=== PATIENT | female | born 1940 | race Caucasian/White ===

== ENCOUNTER 2020-02-01 15:01 | Inpatient (IN) | payer MEDICARE, BC ==
[2020-02-01] MEDS ORDERED: HEPARIN SODIUM,PORCINE 5,000 UNIT/ML 1 ML VIAL IV PRN (15:24)
[2020-02-01] MEDS: HEPARIN SOD,PORK IN 0.45% NACL 25,000 UNIT in 0.45% NACL 1 250ML.BAG IV SCH (15:36)
--- NOTE | 2020-02-01 15:38 | ED ---
General Adult HPI - General Chief complaint: Chest Pain Stated complaint: NON-STEMI Time Seen by Provider: 02/01/20 15:05 Source: patient, EMS, RN notes reviewed, old records reviewed Mode of arrival: EMS Limitations: no limitations - History of Present Illness Initial comments: This is a 79-year-old female who presents emergency Department from [facility]. According to the report given patient was here for unstable angina. Patient however is not quite sure why she went to her district this morning she states she thinks she might of been dizzy but she now does not remember having any chest pain. Patient has no family or friends or caregiver with her. Patient denies chest pain currently. Patient was sent on heparin. No history of present illness was sent with the patient as well we will try to obtain. - Related Data Home Medications Medication Instructions Recorded Confirmed ALPRAZolam [Xanax] 0.5 mg PO BID 02/01/20 02/01/20 Aspirin EC [Ecotrin Low Dose] 81 mg PO DAILY 02/01/20 02/01/20 Balsalazide Disodium 2,250 mg PO BID 02/01/20 02/01/20 Cholecalciferol [Vitamin D3 (25 1,000 unit PO DAILY 02/01/20 02/01/20 Mcg = 1000 Iu)] Enalapril [Vasotec] 5 mg PO DAILY 02/01/20 02/01/20 Famotidine [Pepcid] 20 mg PO BID 02/01/20 02/01/20 Gabapentin 600 mg PO BID 02/01/20 02/01/20 Levothyroxine Sodium [Synthroid] 100 mcg PO DAILY 02/01/20 02/01/20 Metoprolol Tartrate [Lopressor] 25 mg PO TID 02/01/20 02/01/20 Morphine Sulfate ER [Ms Contin] 15 mg PO DAILY 02/01/20 02/01/20 Oxybutynin Chloride [Ditropan XL] 5 mg PO DAILY 02/01/20 02/01/20 Simvastatin [Zocor] 20 mg PO HS 02/01/20 02/01/20 amLODIPine [Norvasc] 5 mg PO DAILY 02/01/20 02/01/20 Allergies Allergy/AdvReac Type Severity Reaction Status Date / Time No Known Allergies Allergy Verified 02/01/20 15:56 Review of Systems ROS Statement: Those systems with pertinent positive or pertinent negative responses have been documented in the HPI. ROS Other: All systems not noted in ROS Statement are negative. Past Medical History Past Medical History: Cancer History of Any Multi-Drug Resistant Organisms: None Reported Additional Past Surgical History / Comment(s): Right breast masectomy Past Psychological History: No Psychological Hx Reported Smoking Status: Never smoker Past Alcohol Use History: None Reported Past Drug Use History: None Reported General Exam - General Exam Comments Initial Comments: GENERAL: Patient is well-developed and well-nourished. Patient is nontoxic and well- hydrated and is in no acute distress. ENT: Neck is soft and supple. No significant lymphadenopathy is noted. Oropharynx is clear. Moist mucous membranes. Neck has full range of motion without eliciting any pain. EYES: The sclera were anicteric and conjunctiva were pink and moist. Extraocular movements were intact and pupils were equal round and reactive to light. Eyelids were unremarkable. PULMONARY: Patient has crackles in the left base and diminished breath sounds in the right base. CARDIOVASCULAR: There is a regular rate and rhythm without any murmurs gallops or rubs. ABDOMEN: Soft and nontender with normal bowel sounds. No palpable organomegaly was noted. There is no palpable pulsatile mass. SKIN: Skin is clear with no lesions or rashes and otherwise unremarkable. NEUROLOGIC: Patient is alert and oriented x3. Cranial nerves II through XII are grossly intact. Motor and sensory are also intact. Normal speech, volume and content. Symmetrical smile. MUSCULOSKELETAL: Normal extremities with adequate strength and full range of motion. No lower extremity swelling or edema. No calf tenderness. LYMPHATICS: No significant lymphadenopathy is noted PSYCHIATRIC: Normal psychiatric evaluation. Limitations: no limitations Course Vital Signs 02/01/20 02/01/20 02/01/20 15:05 15:14 16:14 Pulse Rate 68 69 Respiratory 16 16 16 Rate Blood Pressure 120/70 110/60 O2 Sat by Pulse 100 96 Oximetry Medical Decision Making - Medical Decision Making EKG shows sinus rhythm at 60 bpm OK interval is 256 QRS is 176 QT interval 462 QTC is 491. Patient's EKG shows no ST segment elevation or depression. Patient is a first-degree AV block. Patient's PTT was elevated so we held the heparin at this point time. I reviewed the chest x-ray. We try to get ahold of her recent hospital dishonesty ER physician's H&P but they were for some reason unable to do so Patient's second troponin was more elevated than the first and the patient will be admitted for an N STEMI I spoke with Dr. Herbert he agreed to admit the patient admitted the patient I wrote admitting orders - Lab Data Result diagrams: 02/01/20 15:15 Lab Results 02/01/20 02/01/20 02/01/20 Range/Units 15:15 15:15 15:15 WBC 9.0 (3.8-10.6) k/uL RBC 3.91 (3.80-5.40) m/uL Hgb 10.8 L (11.4-16.0) gm/dL Hct 34.2 (34.0-46.0) % MCV 87.5 (80.0-100.0) fL MCH 27.6 (25.0-35.0) pg MCHC 31.5 (31.0-37.0) g/dL RDW 14.9 (11.5-15.5) % Plt Count 265 (150-450) k/uL Neutrophils % 88 % Lymphocytes % 8 % Monocytes % 3 % Eosinophils % 1 % Basophils % 0 % Neutrophils # 8.0 H (1.3-7.7) k/uL Lymphocytes # 0.7 L (1.0-4.8) k/uL Monocytes # 0.3 (0-1.0) k/uL Eosinophils # 0.0 (0-0.7) k/uL Basophils # 0.0 (0-0.2) k/uL Hypochromasia Slight PT 15.0 H (9.0-12.0) sec INR 1.5 H (<1.2) APTT 124.3 H* (22.0-30.0) sec Troponin I 0.879 H* (0.000-0.034) ng/mL Critical Care Time Critical Care Time: Yes Total Critical Care Time: 35 Disposition Clinical Impression: Non-STEMI (non-ST elevated myocardial infarction) Disposition: ADMITTED IP TO THIS HOSP Referrals: Froy López DO [Primary Care Provider] - 1-2 days Time of Disposition: 16:11
[2020-02-01 15:45] LABS: Basophils % (A) 0 %; Eosinophils % (A) 1 %; HCT 34.2 % (34.0-46.0); HGB 10.8 gm/dL (11.4-16.0); Hypochromasia Slight; Lymphocytes # (A) 0.7 k/uL (1.0-4.8); Lymphocytes % (A) 8 %; MCH 27.6 pg (25.0-35.0); MCHC 31.5 g/dL (31.0-37.0); MCV 87.5 fL (80.0-100.0); Mean Platelet Volume 7.8; Monocytes # (A) 0.3 k/uL (0-1.0); Monocytes % (A) 3 %; Neutrophils % (A) 88 %; Platelet Count 265 k/uL (150-450); RBC 3.91 m/uL (3.80-5.40); RDW 14.9 % (11.5-15.5)
[2020-02-01 16:02] LABS: INR 1.5 (<1.2)
[2020-02-01 16:04] LABS: Partial Thromboplastin Time 124.3 sec (22.0-30.0)
[2020-02-01] MEDS ORDERED: NITROGLYCERIN SL TABS 0.4 MG TAB SUBLINGUAL PRN (16:16)
[2020-02-01] MEDS: NITROGLYCERIN OINT 1 INCH/GM PACKET TOPICAL SCH (19:07)
[2020-02-01] MEDS: ALPRAZolam 0.5 MG TAB PO SCH (20:20)
[2020-02-01] MEDS: FAMOTIDINE 20 MG TAB PO SCH (20:20)
[2020-02-01] MEDS: GABAPENTIN 300 MG CAP PO SCH (20:20)
[2020-02-01] MEDS: ATORVASTATIN 10 MG TAB PO SCH (20:20)
[2020-02-01] MEDS: BALSALAZIDE DISODIUM 750 MG CAPSULE PO SCH (20:29)
[2020-02-01] MEDS: METOPROLOL TARTRATE 25 MG TAB PO SCH (22:51)
[2020-02-02] MEDS: LEVOTHYROXINE 100 MCG TAB PO SCH (05:56)
[2020-02-02] MEDS: NITROGLYCERIN OINT 1 INCH/GM PACKET TOPICAL SCH ×5 (05:56→23:07)
[2020-02-02 06:48] LABS: Basophils % (A) 0 %; Eosinophils # (A) 0.2 k/uL (0-0.7); Eosinophils % (A) 2 %; HCT 37.2 % (34.0-46.0); HGB 11.4 gm/dL (11.4-16.0); Hypochromasia Slight; Lymphocytes # (A) 0.7 k/uL (1.0-4.8); Lymphocytes % (A) 8 %; MCH 27.6 pg (25.0-35.0); MCHC 30.6 g/dL (31.0-37.0); Monocytes # (A) 0.3 k/uL (0-1.0); Monocytes % (A) 4 %; Neutrophils # (A) 7.9 k/uL (1.3-7.7); Neutrophils % (A) 85 %; Platelet Count 355 k/uL (150-450); RBC 4.14 m/uL (3.80-5.40); RDW 15.3 % (11.5-15.5); WBC 9.2 k/uL (3.8-10.6)
[2020-02-02 06:59] LABS: Cholesterol 84 mg/dL (<200); HDL Cholesterol 35 mg/dL (40-60); LDL Cholesterol,Calculated 35 mg/dL (0-99); Triglycerides 69 mg/dL (<150)
[2020-02-02] MEDS: ALPRAZolam 0.5 MG TAB PO SCH ×2 (09:44→21:23)
[2020-02-02] MEDS: amLODIPine 5 MG TAB PO SCH (09:53)
[2020-02-02] MEDS: GABAPENTIN 300 MG CAP PO SCH ×2 (09:53→21:24)
[2020-02-02] MEDS: METOPROLOL TARTRATE 25 MG TAB PO SCH ×3 (09:53→21:24)
[2020-02-02] MEDS: ASPIRIN 81 MG PO SCH (09:53)
[2020-02-02] MEDS: FAMOTIDINE 20 MG TAB PO SCH ×2 (09:54→21:24)
[2020-02-02] MEDS: OXYBUTYNIN XL 5 MG TAB.ER.24 PO SCH (09:54)
[2020-02-02] MEDS: BALSALAZIDE DISODIUM 750 MG CAPSULE PO SCH ×2 (09:54→21:23)
[2020-02-02] MEDS: ASPIRIN 325 MG TAB PO SCH (09:54)
[2020-02-02] MEDS: MORPHINE SULFATE ER 15 MG TABLET PO SCH (09:54)
[2020-02-02 11:10] LABS: ALT 84 U/L (4-34); African American GFR (CKD) >90 (>60 ml/min/1.73 sqM); Albumin 3.1 g/dL (3.5-5.0); Alkaline Phosphatase 64 U/L (38-126); Anion Gap 8 mmol/L; Blood Urea Nitrogen 33 mg/dL (7-17); Calcium 8.9 mg/dL (8.4-10.2); Carbon Dioxide 25 mmol/L (22-30); Chloride 98 mmol/L (98-107); Glucose 86 mg/dL (74-99); Non-African American GFR(CKD) 84 (>60 ml/min/1.73 sqM); Potassium 3.3 mmol/L (3.5-5.1); Sodium 131 mmol/L (137-145); Total Bilirubin 0.8 mg/dL (0.2-1.3); Total Protein 6.6 g/dL (6.3-8.2)
--- NOTE | 2020-02-02 11:20 | P.HPIM ---
History of Present Illness H&P Date: 02/02/20 Past Medical History Past Medical History: Cancer, Hyperlipidemia, Hypertension, Myocardial Infarction (DE), Osteoarthritis (OA) Additional Past Medical History / Comment(s): cholitis Last Myocardial Infarction Date:: 2008 History of Any Multi-Drug Resistant Organisms: None Reported Additional Past Surgical History / Comment(s): Right breast masectomy Past Anesthesia/Blood Transfusion Reactions: No Reported Reaction Past Psychological History: No Psychological Hx Reported Smoking Status: Never smoker Past Alcohol Use History: None Reported Past Drug Use History: None Reported - Past Family History Mother History Unknown: Yes Medications and Allergies Home Medications Medication Instructions Recorded Confirmed Type ALPRAZolam [Xanax] 0.5 mg PO BID 02/01/20 02/01/20 History Aspirin EC [Ecotrin Low Dose] 81 mg PO DAILY 02/01/20 02/01/20 History Balsalazide Disodium 2,250 mg PO BID 02/01/20 02/01/20 History Cholecalciferol [Vitamin D3 (25 1,000 unit PO DAILY 02/01/20 02/01/20 History Mcg = 1000 Iu)] Enalapril [Vasotec] 5 mg PO DAILY 02/01/20 02/01/20 History Famotidine [Pepcid] 20 mg PO BID 02/01/20 02/01/20 History Gabapentin 600 mg PO BID 02/01/20 02/01/20 History Levothyroxine Sodium [Synthroid] 100 mcg PO DAILY 02/01/20 02/01/20 History Metoprolol Tartrate [Lopressor] 25 mg PO TID 02/01/20 02/01/20 History Morphine Sulfate ER [Ms Contin] 15 mg PO DAILY 02/01/20 02/01/20 History Oxybutynin Chloride [Ditropan XL] 5 mg PO DAILY 02/01/20 02/01/20 History Simvastatin [Zocor] 20 mg PO HS 02/01/20 02/01/20 History amLODIPine [Norvasc] 5 mg PO DAILY 02/01/20 02/01/20 History Allergies Allergy/AdvReac Type Severity Reaction Status Date / Time No Known Allergies Allergy Verified 02/01/20 15:56 Physical Exam Vitals: Vital Signs Temp Pulse Pulse Resp BP BP Pulse Ox 02/02/20 08:30 97.6 F 102 H 18 125/72 95 02/02/20 03:42 97.6 F 84 16 121/74 98 02/01/20 23:55 97.6 F 64 18 111/58 94 L 02/01/20 20:00 97.4 F L 67 18 107/57 99 02/01/20 17:58 97 F L 65 18 107/54 95 02/01/20 17:26 16 115/63 96 02/01/20 16:14 69 16 110/60 96 02/01/20 15:14 16 02/01/20 15:05 68 16 120/70 100 Intake and Output 02/01/20 02/02/20 02/02/20 22:59 06:59 14:59 Intake Total 28.116 540 60.728 Output Total 425 Balance 28.116 115 60.728 Intake: Intake, IV Titration 28.116 60.728 Amount Heparin Sod,Pork in 0.45% 28.116 60.728 NaCl 25,000 unit In 0.45 % NaCl 1 250ml.bag @ 18 UNITS/KG/HR 8.491 mls/hr IV .Q24H [facility] Rx#: [id number] Oral 540 Output: Urine 425 Other: Voiding Method Toilet Toilet Weight 46.9 kg 47.4 kg Results CBC & Chem 7: 02/02/20 06:04 Labs: Abnormal Lab Results - Last 24 Hours (Table) 02/01/20 02/01/20 02/01/20 Range/Units 15:15 15:15 15:15 Hgb 10.8 L (11.4-16.0) gm/dL MCHC (31.0-37.0) g/dL Neutrophils # 8.0 H (1.3-7.7) k/uL Lymphocytes # 0.7 L (1.0-4.8) k/uL PT 15.0 H (9.0-12.0) sec INR 1.5 H (<1.2) APTT 124.3 H* (22.0-30.0) sec Troponin I 0.879 H* (0.000-0.034) ng/mL HDL Cholesterol (40-60) mg/dL 02/01/20 02/01/20 02/02/20 Range/Units 21:16 21:47 02:29 Hgb (11.4-16.0) gm/dL MCHC (31.0-37.0) g/dL Neutrophils # (1.3-7.7) k/uL Lymphocytes # (1.0-4.8) k/uL PT (9.0-12.0) sec INR (<1.2) APTT 55.6 H (22.0-30.0) sec Troponin I 0.718 H* 0.719 H* (0.000-0.034) ng/mL HDL Cholesterol (40-60) mg/dL 02/02/20 02/02/20 02/02/20 Range/Units 06:04 06:04 06:04 Hgb (11.4-16.0) gm/dL MCHC 30.6 L (31.0-37.0) g/dL Neutrophils # 7.9 H (1.3-7.7) k/uL Lymphocytes # 0.7 L (1.0-4.8) k/uL PT (9.0-12.0) sec INR (<1.2) APTT 73.7 H (22.0-30.0) sec Troponin I (0.000-0.034) ng/mL HDL Cholesterol 35 L (40-60) mg/dL Thrombosis Risk Factor Assmnt - Choose All That Apply Any of the Below Risk Factors Present?: Yes Other Risk Factors: Yes Each Risk Factor Represents 3 Points: Age 75 years or older Thrombosis Risk Factor Assessment Total Risk Factor Score: 3 Thrombosis Risk Factor Assessment Level: Moderate Risk
[2020-02-02 11:21] LABS: AST 774 U/L (14-36)
--- NOTE | 2020-02-02 11:32 | CONS ---
CONSULTATION CHIEF COMPLAINT: Fatigue, tiredness and not being her usual self. Sweta is a 79-year-old lady with history of hypertension, hypothyroidism, who presented to [facility] complaining of fatigue, tiredness in the ER. The ER doctor from there called us saying that the patient has a new onset left bundle branch block and then transferred the patient over to [facility]. As per patient, patient did not wish to go to [facility]. As per the physician, patient and want to go to [facility] but opted to come here. The patient never had any chest pain. EKG does show sinus rhythm with left bundle branch block. At the time of my evaluation this morning, she appears somewhat confused and is not quite sure why she actually went to the emergency room in the first instance. She had been treated with intravenous heparin, which she has on right now and the current restrictive criteria we are following in treating and performing invasive procedures at this hospital, the hospital has recently informed us, this patient does not fit those criteria. The patient had a non ST-segment elevation NM, but does not have chest pain. She is not hemodynamically unstable. She is not short of breath. Hence, the plan is to treat her with medical therapy with aspirin, Lipitor, continue the IV heparin, beta miguel and nitrates. We will obtain a 2D echo on her tomorrow to document the LV function and further optimize her medical therapy and if she remains pain free and she is doing well, I anticipate her being discharged home over the next 48 hours and she will undergo an outpatient stress test and if she has significant areas of ischemia and has symptoms, then we will undergo cardiac catheterization at that time. PAST MEDICAL HISTORY: Significant for hypertension, dyslipidemia, hypothyroidism. MEDICATIONS: Include Xanax, aspirin, Vasotec, Pepcid, Synthroid, Lopressor, Zocor, Norvasc, and Ditropan. ALLERGIES: There are no known drug allergies. FAMILY HISTORY: Negative for premature coronary artery disease. SOCIAL HISTORY: Negative for current smoking, EtOH abuse, or drug abuse. REVIEW OF SYSTEMS: HEENT: Unremarkable. CARDIAC: As described above. RESPIRATORY: As described above. GI: Negative. GENITOURINARY: Negative. ALLERGY: None. SKIN: Negative. MUSCULOSKELETAL: Negative. ENDOCRINE: Negative. HEMATOLOGIC: Negative. DERM: Negative. CONSTITUTIONAL: As described above. Rest of the system review is not relevant. EXAM: Patient is afebrile. Heart rate is around 80 beats per minute. Blood pressure is 120/70, respiratory rate is 18, O2 sat is 95% on 2 L. There is no jugular venous distention. Chest exam reveals good air entry bilaterally. Heart exam reveals first and second heart sounds and a systolic murmur at the left lower sternal border. Abdomen is soft. Exam of extremities did not reveal any edema. LAB: Showed that the tropes are mildly elevated at 0.8, 0.7, 0.7. LDL is 35, hemoglobin is 7.4. We do not have electrolytes on her, will check one. ASSESSMENT: 1. Acute non ST-segment elevation myocardial infarction. 2. Mild confusional state. 3. Abnormal EKG. 4. Hypertension. 5. Dyslipidemia. PLAN: The patient had tested negative for Covid at the other hospital. I will obtain a 2D echo on her tomorrow and treat her with optimal and aggressive medical therapy. The patient does not fit criteria for cardiac catheterization based on the guidelines that we have recently received from [facility]. Patient is not having chest pain. She is not short of breath. She is not in heart failure. We will treat her with medical therapy. Consider an outpatient stress test and in the presence of large areas of ischemia, we may consider performing invasive procedures. Thank you for giving us the privilege to participate in the care of this pleasant lady. NAA / LILI: [id number] /
--- NOTE | 2020-02-02 14:07 | P.HPIM ---
History of Present Illness H&P Date: 02/02/20 Chief Complaint: Feeling unwell History of presenting complaint: This is a 79-year-old patient of Dr. Froy Bansal. Chronic stable medical conditions include hyperlipidemia, hypertension, osteoarthritis. Patient initially presented to [facility] for which he was transferred here. Patient is not sure exactly why she was taking the hospital but she does say that she's had a bit of a cough last few days has been sneezing. Has had some chills no obvious fever. Does feel tired and rundown decreased appetite patient rather forgetful otherwise. Patient's overt-19 was ruled out. Patient have some positive troponin for which cardiology was consulted. Nonspecific EKG changes. This point and decided not to do any cardiac catheterization. Patient denies any of his chest pain. Review of systems: GEN.: Tired decreased appetite chills EYES: None HEENT: Decreased hearing NECK: None RESPIRATORY: None CARDIOVASCULAR: No chest pain GASTROINTESTINAL: None GENITOURINARY: None MUSCULOSKELETAL: Joint pains LYMPHATICS: None HEMATOLOGICAL: None PSYCHIATRY: Forgetful NEUROLOGICAL: Does use a walker Past medical history to include: Hyperlipidemia, hypertension, PR, osteoarthritis, right mastectomy for cancer Social history: Does not smoke or drink alcohol. Lives with . Does use a walker. Family history: Reviewed, noncontributory to presentation Physical examination: VITAL SIGNS: Afebrile, 68, 16, 120/70, 100% on 3 L GENERAL: BMI 17.9, laying in bed, not in distress. EYES: Pupils equal. Conjunctiva normal. HEENT: External appearance of nose and ears normal, oral cavity grossly normal. NECK: JVD not raised; masses not palpable. HEART: First and second heart sounds are normal; no edema. LUNGS: Respiratory rate normal; slightly decreased breath sounds. ABDOMEN: Soft, nontender, liver spleen not palpable, no masses palpable. PSYCH: [Patient is able to answer simple questions mood and affect slightly anxious MUSCULOSKELETAL: Evidence of OA in multiple joints, loss of subcutaneous fat, bony prominences NEUROLOGICAL: Cranial nerves grossly intact; no facial asymmetry, power and sensation grossly intact. LYMPHATICS: No lymph nodes palpable in the axilla and neck INVESTIGATIONS, reviewed in the clinical context: White count 9 hemoglobin 10.8 crit is to 65 Troponin I 0.879, 0.718, 0.719 EKG tracing personally reviewed by vt-sinus rhythm with intraventricular block nonspecific T-wave changes in the inferior leads Assessment: -This is a patient with a good historian for about a week as a cough sneezing chills. Decreased appetite denies any obvious chest pain. Could've had a viral syndrome with acute myocarditis. 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 At this point cardiology is not planning for any intervention. Patient denies any chest pain we'll DC the Nitropaste. Patient only on Lipitor and aspirin. Increase dose of Lipitor 20 mg daily at bedtime. We'll keep a close eye. We will stop the heparin in 24 hours. Past Medical History Past Medical History: Cancer, Hyperlipidemia, Hypertension, Myocardial Infarction (PR), Osteoarthritis (OA) Additional Past Medical History / Comment(s): cholitis Last Myocardial Infarction Date:: 2008 History of Any Multi-Drug Resistant Organisms: None Reported Additional Past Surgical History / Comment(s): Right breast masectomy Past Anesthesia/Blood Transfusion Reactions: No Reported Reaction Past Psychological History: No Psychological Hx Reported Smoking Status: Never smoker Past Alcohol Use History: None Reported Past Drug Use History: None Reported - Past Family History Mother History Unknown: Yes Medications and Allergies Home Medications Medication Instructions Recorded Confirmed Type ALPRAZolam [Xanax] 0.5 mg PO BID 02/01/20 02/01/20 History Aspirin EC [Ecotrin Low Dose] 81 mg PO DAILY 02/01/20 02/01/20 History Balsalazide Disodium 2,250 mg PO BID 02/01/20 02/01/20 History Cholecalciferol [Vitamin D3 (25 1,000 unit PO DAILY 02/01/20 02/01/20 History Mcg = 1000 Iu)] Enalapril [Vasotec] 5 mg PO DAILY 02/01/20 02/01/20 History Famotidine [Pepcid] 20 mg PO BID 02/01/20 02/01/20 History Gabapentin 600 mg PO BID 02/01/20 02/01/20 History Levothyroxine Sodium [Synthroid] 100 mcg PO DAILY 02/01/20 02/01/20 History Metoprolol Tartrate [Lopressor] 25 mg PO TID 02/01/20 02/01/20 History Morphine Sulfate ER [Ms Contin] 15 mg PO DAILY 02/01/20 02/01/20 History Oxybutynin Chloride [Ditropan XL] 5 mg PO DAILY 02/01/20 02/01/20 History Simvastatin [Zocor] 20 mg PO HS 02/01/20 02/01/20 History amLODIPine [Norvasc] 5 mg PO DAILY 02/01/20 02/01/20 History Allergies Allergy/AdvReac Type Severity Reaction Status Date / Time No Known Allergies Allergy Verified 02/01/20 15:56 Physical Exam Vitals: Vital Signs Temp Pulse Pulse Resp BP BP Pulse Ox 02/02/20 08:30 97.6 F 102 H 18 125/72 95 02/02/20 03:42 97.6 F 84 16 121/74 98 02/01/20 23:55 97.6 F 64 18 111/58 94 L 02/01/20 20:00 97.4 F L 67 18 107/57 99 02/01/20 17:58 97 F L 65 18 107/54 95 02/01/20 17:26 16 115/63 96 02/01/20 16:14 69 16 110/60 96 02/01/20 15:14 16 02/01/20 15:05 68 16 120/70 100 Intake and Output 02/01/20 02/02/20 02/02/20 22:59 06:59 14:59 Intake Total 28.116 540 60.728 Output Total 425 Balance 28.116 115 60.728 Intake: Intake, IV Titration 28.116 60.728 Amount Heparin Sod,Pork in 0.45% 28.116 60.728 NaCl 25,000 unit In 0.45 % NaCl 1 250ml.bag @ 18 UNITS/KG/HR 8.491 mls/hr IV .Q24H [facility] Rx#: [id number] Oral 540 Output: Urine 425 Other: Voiding Method Toilet Toilet Weight 46.9 kg 47.4 kg Results CBC & Chem 7: 02/02/20 06:04 02/02/20 06:04 Labs: Abnormal Lab Results - Last 24 Hours (Table) 02/01/20 02/01/20 02/01/20 Range/Units 15:15 15:15 15:15 Hgb 10.8 L (11.4-16.0) gm/dL MCHC (31.0-37.0) g/dL Neutrophils # 8.0 H (1.3-7.7) k/uL Lymphocytes # 0.7 L (1.0-4.8) k/uL PT 15.0 H (9.0-12.0) sec INR 1.5 H (<1.2) APTT 124.3 H* (22.0-30.0) sec Troponin I 0.879 H* (0.000-0.034) ng/mL HDL Cholesterol (40-60) mg/dL 02/01/20 02/01/20 02/02/20 Range/Units 21:16 21:47 02:29 Hgb (11.4-16.0) gm/dL MCHC (31.0-37.0) g/dL Neutrophils # (1.3-7.7) k/uL Lymphocytes # (1.0-4.8) k/uL PT (9.0-12.0) sec INR (<1.2) APTT 55.6 H (22.0-30.0) sec Troponin I 0.718 H* 0.719 H* (0.000-0.034) ng/mL HDL Cholesterol (40-60) mg/dL 02/02/20 02/02/20 02/02/20 Range/Units 06:04 06:04 06:04 Hgb (11.4-16.0) gm/dL MCHC 30.6 L (31.0-37.0) g/dL Neutrophils # 7.9 H (1.3-7.7) k/uL Lymphocytes # 0.7 L (1.0-4.8) k/uL PT (9.0-12.0) sec INR (<1.2) APTT 73.7 H (22.0-30.0) sec Troponin I (0.000-0.034) ng/mL HDL Cholesterol 35 L (40-60) mg/dL Thrombosis Risk Factor Assmnt - Choose All That Apply Any of the Below Risk Factors Present?: Yes Other Risk Factors: Yes Each Risk Factor Represents 3 Points: Age 75 years or older Thrombosis Risk Factor Assessment Total Risk Factor Score: 3 Thrombosis Risk Factor Assessment Level: Moderate Risk
[2020-02-02] MEDS: HEPARIN SOD,PORK IN 0.45% NACL 25,000 UNIT in 0.45% NACL 1 250ML.BAG IV SCH (15:48)
[2020-02-02] MEDS ORDERED: Potassium Replacement Protocol 1 EACH MISC MISCELLANE PRN (17:22)
[2020-02-02] MEDS: POTASSIUM CHLORIDE 10 MEQ in WATER FOR INJECTION 1 100ML.BAG IVPB SCH ×4 (18:25→23:01)
[2020-02-02] MEDS: ATORVASTATIN 10 MG TAB PO SCH (21:24)
[2020-02-03] MEDS: HEPARIN SOD,PORK IN 0.45% NACL 25,000 UNIT in 0.45% NACL 1 250ML.BAG IV SCH (01:16)
[2020-02-03] MEDS: NITROGLYCERIN OINT 1 INCH/GM PACKET TOPICAL SCH ×4 (05:37→23:15)
[2020-02-03] MEDS: LEVOTHYROXINE 100 MCG TAB PO SCH (05:38)
[2020-02-03 06:43] LABS: African American GFR (CKD) >90 (>60 ml/min/1.73 sqM); Anion Gap 8 mmol/L; Basophils % (A) 0 %; Blood Urea Nitrogen 19 mg/dL (7-17); Calcium 8.6 mg/dL (8.4-10.2); Carbon Dioxide 27 mmol/L (22-30); Chloride 98 mmol/L (98-107); Eosinophils # (A) 0.1 k/uL (0-0.7); Eosinophils % (A) 1 %; Glucose 113 mg/dL (74-99); HCT 35.9 % (34.0-46.0); Hypochromasia Slight; Lymphocytes # (A) 0.8 k/uL (1.0-4.8); Lymphocytes % (A) 9 %; MCH 27.3 pg (25.0-35.0); MCHC 30.7 g/dL (31.0-37.0); MCV 88.8 fL (80.0-100.0); Mean Platelet Volume 7.8; Monocytes # (A) 0.4 k/uL (0-1.0); Monocytes % (A) 4 %; Neutrophils # (A) 8.2 k/uL (1.3-7.7); Neutrophils % (A) 86 %; Non-African American GFR(CKD) 86 (>60 ml/min/1.73 sqM); Platelet Count 273 k/uL (150-450); Potassium 3.7 mmol/L (3.5-5.1); RBC 4.04 m/uL (3.80-5.40); RDW 15.4 % (11.5-15.5); Sodium 133 mmol/L (137-145); WBC 9.6 k/uL (3.8-10.6)
[2020-02-03] MEDS: GABAPENTIN 300 MG CAP PO SCH ×2 (08:36→20:41)
[2020-02-03] MEDS: METOPROLOL TARTRATE 25 MG TAB PO SCH (08:36)
[2020-02-03] MEDS: ASPIRIN 81 MG PO SCH (08:36)
[2020-02-03] MEDS: FAMOTIDINE 20 MG TAB PO SCH ×2 (08:37→20:41)
[2020-02-03] MEDS: MORPHINE SULFATE ER 15 MG TABLET PO SCH (08:37)
[2020-02-03] MEDS: ALPRAZolam 0.5 MG TAB PO SCH ×2 (08:37→20:41)
[2020-02-03] MEDS: BALSALAZIDE DISODIUM 750 MG CAPSULE PO SCH ×2 (08:37→20:41)
[2020-02-03] MEDS: amLODIPine 5 MG TAB PO SCH (08:38)
[2020-02-03] MEDS: ASPIRIN 325 MG TAB PO SCH (08:38)
[2020-02-03] MEDS: OXYBUTYNIN XL 5 MG TAB.ER.24 PO SCH (08:38)
[2020-02-03] MEDS ORDERED: POTASSIUM CHLORIDE ER 20 MEQ TAB.ER PO STA (11:01)
--- NOTE | 2020-02-03 13:00 | ECHOF ---
Referral Reason:elevated troponins MEASUREMENTS -------- HEIGHT: 162.6 cm WEIGHT: 46.3 kg BP: 111/69 RVIDd: 2.8 cm (< 3.3) IVSd: 1.0 cm (0.6 - 1.1) LVIDd: 4.0 cm (3.9 - 5.3) LVPWd: 1.2 cm (0.6 - 1.1) IVSs: 0.9 cm LVIDs: 3.8 cm LVPWs: 0.9 cm LAESV Index (A-L): 54.43 ml/m Ao Diam: 2.8 cm (2.0 - 3.7) AV Cusp: 1.7 cm (1.5 - 2.6) MV EXCURSION: 21.150 mm (> 18.000) MV EF SLOPE: 94 mm/s (70 - 150) EPSS: 0.9 cm AR PHT: 536 ms RAP: 20.00 mmHg RVSP: 55.56 mmHg FINDINGS -------- Atrial fibrillation. This was a technically adequate study. The left ventricular size is normal. Left ventricular wall thickness is normal. There is severe g lobal hypokinesis of LV . Overall left ventricular systolic function is severely impaired with, an EF between 20 - 25 %. Left ventricular fillimg pressure cannot be estimated due to Atrial fibrillat ion. The right ventricle is normal in size. LA is severely dilated >40 ml/m2 The right atrium is moderately enlarged. Interatrial and interventricular septum intact. There is mild aortic valve sclerosis. Trace to mild aortic regurgitation. Moderate mitral annular calcification present. Severe mitral regurgitation is present. Moderate tricuspid regurgitation present. There is moderate pulmonary hypertension. The right declan tricular systolic pressure, as measured by Doppler, is 55.56mmHg. There is no pulmonic regurgitation present. The aortic root size is normal. The inferior vena cava is dilated with poor inspiratory collapse which is consistent with estimated r ight atrial pressure of 20 mmHg. There is no pericardial effusion. Large Pleural Effusion. CONCLUSIONS -------- 1. There is severe global hypokinesis of LV . 2. Overall left ventricular systolic function is severely impaired with, an EF between 20 - 25 %. 3. Left ventricular fillimg pressure cannot be estimated due to Atrial fibrillation. 4. LA is severely dilated >40 ml/m2 5. The right atrium is moderately enlarged. 6. There is mild aortic valve sclerosis. 7. Trace to mild aortic regurgitation. 8. Moderate mitral annular calcification present. 9. Severe mitral regurgitation is present. 10. Moderate tricuspid regurgitation present. 11. There is moderate pulmonary hypertension. 12. There is no pulmonic regurgitation present. 13. The inferior vena cava is dilated with poor inspiratory collapse which is consistent with estimat ed right atrial pressure of 20 mmHg. 14. Large Pleural Effusion. ELECTRICIAN BUS: Magali Harley RDCS
--- NOTE | 2020-02-03 13:28 | PN ---
PROGRESS NOTE Mrs. Navarrete is in atrial fib today. She has underlying left bundle with a controlled ventricular rate, however. With activity, rate seems to go up a little bit. She has no further chest discomfort. Her troponin was elevated but she has no further chest pain. We will not do any coronary angiography, but given the fact her rhythm is now atrial fib, rate is moderate, I will increase the metoprolol to optimize rate control. We will start her on Eliquis 2.5 mg b.i.d., obtain echocardiogram and supplement her potassium. At the time of my evaluation, she is comfortable, resting. Denies any chest discomfort. Vitals are stable. JVD is not evident. S1, S2 with a regular rate and rhythm. Short systolic murmur. Lungs are clear. Abdomen and lower extremity exam are unremarkable. Plan is to supplement potassium. Increase metoprolol to 50 mg t.i.d. to optimize rate control. Start her on Eliquis 2.5 mg b.i.d., discontinue the aspirin. I spoke to the patient's daughter as well. We will optimize rate control, anticoagulation. In view of the fact she is almost 80 years of age and weighs less than 50 kg, I will place her only on 2.5 of Eliquis b.i.d. If she has any further chest discomfort, we will consider cardiac catheterization, but for now, we will pursue medical therapy with beta blockers. Obtain echocardiogram and supplement potassium. Prognosis remains guarded. MMODL / IJN: [id number] /
[2020-02-03] MEDS: METOPROLOL TARTRATE 50 MG TAB PO SCH ×2 (17:49→20:42)
[2020-02-03] MEDS: APIXABAN 2.5 MG TABLET PO SCH (20:42)
[2020-02-03] MEDS: ATORVASTATIN 10 MG TAB PO SCH (20:42)
--- NOTE | 2020-02-03 20:54 | P.PN ---
Progress Note - Text Progress Note Date: 02/03/20 Chief Complaint: Feeling unwell History of presenting complaint: This is a 79-year-old patient of Dr. Froy Bansal. Chronic stable medical conditions include hyperlipidemia, hypertension, osteoarthritis. Patient initially presented to [facility] for which he was transferred here. Patient is not sure exactly why she was taking the hospital but she does say that she's had a bit of a cough last few days has been sneezing. Has had some chills no obvious fever. Does feel tired and rundown decreased appetite patient rather forgetful otherwise. Patient's overt-19 was ruled out. Patient have some positive troponin for which cardiology was consulted. Nonspecific EKG changes. This point and decided not to do any cardiac catheterization. Patient denies any of his chest pain. Admitted with-viral syndrome. Also acute non-Q-wave HI. Today-patient found to be in atrial fibrillation. Put on beta blockers or liquids. Overall feeling a bit better. No chest pain. No palpitation. Review of systems: Was done for constitutional, cardiovascular, GI, pulmonary. relevant finding as above Active Medications Alprazolam (Xanax) 0.5 mg PO BID [facility] Last Admin: 02/03/20 20:41 Dose: 0.5 mg Documented by: Amlodipine Besylate (Norvasc) 5 mg PO DAILY [facility] Last Admin: 02/03/20 08:38 Dose: 5 mg Documented by: Apixaban (Eliquis) 2.5 mg PO BID [facility] Last Admin: 02/03/20 20:42 Dose: 2.5 mg Documented by: Atorvastatin Calcium (Lipitor) 10 mg PO HS [facility] Last Admin: 02/03/20 20:42 Dose: 10 mg Documented by: Balsalazide (Colazal) 2,250 mg PO BID [facility] Last Admin: 02/03/20 20:41 Dose: 2,250 mg Documented by: Famotidine (Pepcid) 20 mg PO BID [facility] Last Admin: 02/03/20 20:41 Dose: 20 mg Documented by: Gabapentin (Neurontin) 600 mg PO BID [facility] Last Admin: 02/03/20 20:41 Dose: 600 mg Documented by: Levothyroxine Sodium (Synthroid) 100 mcg PO DAILY@0630 [facility] Last Admin: 02/03/20 05:38 Dose: 100 mcg Documented by: Metoprolol Tartrate (Lopressor) 50 mg PO TID [facility] Last Admin: 02/03/20 20:42 Dose: 50 mg Documented by: Miscellaneous Information (Potassium Per Protocol) 1 each MISCELLANE DAILY PRN; Protocol PRN Reason: Per Protocol Morphine Sulfate (Ms Contin) 15 mg PO DAILY [facility] Last Admin: 02/03/20 08:37 Dose: 15 mg Documented by: Nitroglycerin (Nitrostat) 0.4 mg SUBLINGUAL Q5M PRN PRN Reason: Chest Pain Nitroglycerin (Nitro-Bid Oint) 1 inch TOPICAL Q6HR [facility] Last Admin: 02/03/20 17:49 Dose: 1 inch Documented by: Oxybutynin Chloride (Ditropan Xl) 5 mg PO DAILY [facility] Last Admin: 02/03/20 08:38 Dose: 5 mg Documented by: Physical examination: VITAL SIGNS: 97.7, 108, 18, 111/69, 95% on 2 L GENERAL: Laying in bed, awake EYES: Pupils equal. Conjunctiva normal. HEENT: External appearance of nose and ears normal, oral cavity grossly normal. NECK: JVD not raised; masses not palpable. HEART: Heart sounds irregular; no edema. LUNGS: Respiratory rate normal; slightly decreased breath sounds. ABDOMEN: Soft, nontender, liver spleen not palpable, no masses palpable. PSYCH: [Patient is able to answer simple questions mood and affect normal MUSCULOSKELETAL: Evidence of OA in multiple joints, loss of subcutaneous fat, bony prominences INVESTIGATIONS, reviewed in the clinical context: White count 9.6 hemoglobin 11 potassium 3.7 creatinine 0.62 2-D echocardiogram global hypokinesia, EF 20-25%. Moderate mitral annular calcification, severe mitral regurgitation, moderate tricuspid regurgitation, moderate pulmonary hypertension, pleural effusion Previous testing White count 9 hemoglobin 10.8 crit is to 65 Troponin I 0.879, 0.718, 0.719 EKG tracing personally reviewed by me-sinus rhythm with intraventricular block nonspecific T-wave changes in the inferior leads Assessment: -New onset atrial fibrillation rate uncontrolled, POA -Chronic congestive heart failure from systolic dysfunction EF 20/25 percent from a lying ischemic heart disease -Moderate mitral annular calcification, severe mitral regurgitation, moderate tricuspid regurgitation, -Secondary moderate pulmonary hypertension -Possible acute non-Q-wave HI -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 Patient does appear to feel better. Overall prognosis guarded.
[2020-02-04] MEDS: NITROGLYCERIN OINT 1 INCH/GM PACKET TOPICAL SCH (05:38)
[2020-02-04] MEDS: LEVOTHYROXINE 100 MCG TAB PO SCH (05:38)
[2020-02-04 06:26] LABS: Basophils % (A) 0 %; Eosinophils # (A) 0.1 k/uL (0-0.7); Eosinophils % (A) 1 %; HCT 35.1 % (34.0-46.0); HGB 10.9 gm/dL (11.4-16.0); Hypochromasia Slight; Lymphocytes # (A) 0.9 k/uL (1.0-4.8); Lymphocytes % (A) 10 %; MCH 27.8 pg (25.0-35.0); MCHC 30.9 g/dL (31.0-37.0); MCV 89.9 fL (80.0-100.0); Monocytes # (A) 0.4 k/uL (0-1.0); Monocytes % (A) 5 %; Neutrophils # (A) 6.8 k/uL (1.3-7.7); Neutrophils % (A) 82 %; Platelet Count 255 k/uL (150-450); RBC 3.91 m/uL (3.80-5.40); RDW 15.6 % (11.5-15.5); WBC 8.3 k/uL (3.8-10.6)
[2020-02-04 06:40] LABS: African American GFR (CKD) >90 (>60 ml/min/1.73 sqM); Anion Gap 8 mmol/L; Blood Urea Nitrogen 23 mg/dL (7-17); Calcium 8.7 mg/dL (8.4-10.2); Carbon Dioxide 27 mmol/L (22-30); Chloride 98 mmol/L (98-107); Glucose 128 mg/dL (74-99); Non-African American GFR(CKD) 84 (>60 ml/min/1.73 sqM); Potassium 4.7 mmol/L (3.5-5.1); Sodium 133 mmol/L (137-145)
[2020-02-04] MEDS: ALPRAZolam 0.5 MG TAB PO SCH ×2 (09:06→21:36)
[2020-02-04] MEDS: OXYBUTYNIN XL 5 MG TAB.ER.24 PO SCH (09:06)
[2020-02-04] MEDS: BALSALAZIDE DISODIUM 750 MG CAPSULE PO SCH ×3 (09:06→21:40)
[2020-02-04] MEDS: GABAPENTIN 300 MG CAP PO SCH ×2 (09:06→21:31)
[2020-02-04] MEDS: APIXABAN 2.5 MG TABLET PO SCH (09:06)
[2020-02-04] MEDS: amLODIPine 5 MG TAB PO SCH (09:06)
[2020-02-04] MEDS: FAMOTIDINE 20 MG TAB PO SCH ×2 (09:06→21:31)
[2020-02-04] MEDS: METOPROLOL TARTRATE 50 MG TAB PO SCH ×3 (09:06→21:31)
[2020-02-04] MEDS: MORPHINE SULFATE ER 15 MG TABLET PO SCH (09:07)
--- NOTE | 2020-02-04 10:39 | XR ---
EXAMINATION TYPE: XR chest 2V DATE OF EXAM: 02/04/2020 COMPARISON: 02/01/2020 TECHNIQUE: PA and lateral views submitted. HISTORY: Shortness of breath FINDINGS: Bilateral consolidation and pleural effusion. Atherosclerotic change aorta. Apical pleural thickening with calcifications nodularity in the right lung stable. Surgical clips right axilla. Calcification left axilla. Heart appears enlarged. IMPRESSION: 1. Bilateral infiltrate and pleural effusion correlate for CHF otherwise consider pneumonia.
--- NOTE | 2020-02-04 11:08 | US ---
EXAMINATION TYPE: US chest DATE OF EXAM: 02/04/2020 COMPARISON: NONE CLINICAL HISTORY: pleural effusion. TECHNIQUE: Targeted ultrasound of the posterior lower bilateral hemithoraces EXAM MEASUREMENTS: Right Pleural Effusion pocket size: 9.2 cm Right skin surface to fluid distance: 1.6 cm Left Pleural Effusion pocket size: 5.9 cm Left skin surface to fluid distance: 1.3 cm Right side MARKED for possible thoracentesis outside the dept. Left side MARKED for possible thoracentesis outside the dept. Pulmonologists are able to review the images in the patient?s EMR. IMPRESSIONS: Bilateral pleural effusions
--- NOTE | 2020-02-04 11:44 | CONS ---
CONSULTATION REASON FOR CONSULTATION: Pleural effusion. DATE OF CONSULTATION: 02/04/2020 This was a patient who actually was admitted on January 31. The patient is a 79-year- old female who presented to the emergency department at [facility]. The patient was there apparently for chest pain and unstable angina. Anyway, she apparently was seen there and sent to the emergency room here at [facility]. After evaluation there, she was admitted here with a diagnosis of non ST- segment elevation myocardial infarction. She was seen by Cardiology and had an echocardiogram. Echocardiogram was reviewed. It did show apparently a left-sided pleural effusion. We did not have a chest x-ray here, so we ordered one. Chest x-ray shows findings that are consistent with congestive heart failure. She does have effusion the size of which are difficult to assess on chest x-ray. An ultrasound was ordered. She appears to be somewhat short of breath. She is a bit tachypneic and has some mild conversational dyspnea. No audible wheezing. No use of accessory muscles. CURRENT HOME MEDICATIONS: Current home medications are reviewed. She is on Xanax, aspirin, balsalazide, vitamin D3, Vasotec, Pepcid, gabapentin, levothyroxine, metoprolol, MS Contin, Ditropan, Zocor, and Norvasc. ALLERGIES: Allergies are denied. PAST MEDICAL HISTORY: Her past medical history is positive for breast cancer and she has had a previous right mastectomy. Based on her medications, she has a history of hypertension, acid reflux disease, hypothyroidism, CHF, and hyperlipidemia. SOCIAL HISTORY: Negative for tobacco use. She denies any alcohol or illicit drug use. FAMILY HISTORY AND OCCUPATIONAL HISTORY: Noncontributory. We do not have much in the way of information on her because she usually goes to [facility]. Full records are currently not available. CURRENT MEDICATIONS HERE: Current medications here include Xanax, amlodipine, Eliquis, Lipitor, Colazal, famotidine, Neurontin, levothyroxine, metoprolol, morphine, nitroglycerin, Ditropan, and potassium chloride along with potassium replacement therapy. REVIEW OF SYSTEMS: CONSTITUTIONAL: Weakness. NEUROLOGIC: Negative. HEENT: Negative. CARDIOVASCULAR: Shortness of breath. PULMONARY: Shortness of breath. GI: Negative. : Negative. RHEUMATOLOGIC: Negative. IMMUNOLOGIC: Negative. ENDOCRINOLOGIC: Negative. DERMATOLOGIC: Negative. PHYSICAL EXAMINATION: VITAL SIGNS: Vital signs are reviewed. Temperature is 97.4, heart rate is 132 and irregular. She may be in atrial fibrillation. Respiratory rate 18. Blood pressure 127/72, heart rate 90 and saturations are 90% on 2 L. GENERAL: Appears in no acute distress. Mildly tachypneic and dyspneic. HEENT: Examination is grossly unremarkable. Nasal O2 in place. NECK: Supple. Full range of motion. No adenopathy or thyromegaly. Neck veins are distended. CARDIOVASCULAR: Examination reveals tachycardia. There is some irregularity to the rhythm. Heart sounds are distant. S1, S2 normal. A soft systolic murmur is noted. LUNGS: Reveal bibasilar crackles. Breath sounds are diminished at the bases. No wheezes or rhonchi. ABDOMEN: Soft. Bowel sounds are heard. EXTREMITIES: Are intact. Minimal edema. SKIN: Without rash. NEUROLOGIC: Examination is brief but nonfocal. Chest x-ray shows findings consistent with CHF and bilateral effusions. Chest ultrasound was just done. LAB DATA: Lab data is reviewed. White count 8.3, hemoglobin 10.9, hematocrit 35.1, platelet count is 255,000. PTT is elevated at 56.9. It looks like she was previously on heparin. Now she is on Eliquis. Sodium 133, potassium 4.7, chloride 98, CO2 of 27. Anion gap is 8. BUN and creatinine were 23 and 0.68. AST 774, ALT 84. Troponin 0.719. Current medications are reviewed. Chest x-rays reviewed. She is on Eliquis 2.5 mg twice a day. ASSESSMENT: 1. Acute hypoxemic respiratory failure, secondary to congestive heart failure. 2. Bilateral effusions, the extent of which are not clear and ultrasound has been ordered. 3. Non ST-segment elevation myocardial infarction. 4. History of vitamin D deficiency. 5. Hypertension. 6. Hyperlipidemia. 7. Hypothyroidism. 8. History of underlying congestive heart failure. 9. Severe cardiomyopathy with ejection fraction of 20% to 25%. 10.Valvular heart disease as noted on echocardiogram. PLAN: An ultrasound of the chest has been ordered. She may need thoracentesis. Additional recommendations and suggestions are forthcoming. We will have to hold her Eliquis for a day or 2 before we do the thoracentesis. Additional recommendations and suggestions are forthcoming. Prognosis is very guarded. MMODL / IJN: [id number] /
--- NOTE | 2020-02-04 12:29 | PN ---
PROGRESS NOTE This lady came in with mild troponin elevation transferred from [facility]. Also had atrial fibrillation with moderate ventricular rate underlying left bundle. Yesterday she was more short of breath. I recommended an echocardiogram, which revealed ejection fraction of 20% with global decrease in contractility. There is also pleural effusion. I am recommending a chest x-ray, PA, lateral and a pulmonary evaluation. We will continue Eliquis at 2.5 mg b.i.d. Rate control is fairly decent. I will continue conservative management for the patient. I explained to her in detail. We will request pulmonary evaluation and obtain a chest x-ray as well. MMODL / IJN: [id number] /
--- NOTE | 2020-02-04 15:10 | XR ---
EXAMINATION TYPE: XR chest 1V portable DATE OF EXAM: 02/04/2020 Comparison: 02/04/2020 Clinical History: 79-year-old female status post thoracentesis Findings: Heart upper limits of normal in size. Moderate left pleural effusion. There is a curvilinear edge pro jecting in the left apex but does not have a typical appearance of a pneumothorax. Short interval fol low-up is recommended. Right apical pleural-parenchymal scarring. Axillary clips on the right. Skinfo ld projecting at the right lower lung. Impression: 1. A linear edge at the left apex unlikely to be a pneumothorax in the absence of thoracentesis on th is side. It also has an atypical appearance for pneumothorax. Follow-up can be performed to reassess this finding. 2. Moderate left pleural effusion remains with adjacent atelectasis and/or consolidation. Right effus ion considerably improved to resolved. 3. Focal right apical pleural parenchymal scarring.
[2020-02-04 15:47] LABS: Appearance,BF Hazy; Nucleated Cells, Body Fluid 100 /uL; RBC, Body Fluid 965 /uL
[2020-02-04 16:07] LABS: Mononuclear WBC,Body Fluid 57 %; Polynuclear WBC,Body Fluid 43 %; Total Cells Counted,Body Fluid 100
[2020-02-04] MEDS ORDERED: ALPRAZolam 0.5 MG TAB PO STA (17:14)
--- NOTE | 2020-02-04 17:47 | XR ---
EXAMINATION TYPE: XR chest 1V portable DATE OF EXAM: 02/04/2020 HISTORY: repeat post thorancentesis xray COMPARISON: 02/04/2020 TECHNIQUE: Single view of the chest is submitted. FINDINGS: Demonstrated are scattered senescent parenchymal change. Basilar infiltrates noted. Left-sided pleural effusion identified. No visible pneumothorax. The heart is stable. Hilar and mediastinal structures are within normal limits. Degenerative changes are seen of the dorsal spine. IMPRESSION: 1. Basilar infiltrates noted. Left-sided pleural effusion identified. No visible pneumothorax.
--- NOTE | 2020-02-04 19:57 | P.PN ---
Progress Note - Text Progress Note Date: 02/04/20 Chief Complaint: Feeling unwell History of presenting complaint: This is a 79-year-old patient of Dr. Froy Bansal. Chronic stable medical conditions include hyperlipidemia, hypertension, osteoarthritis. Patient initially presented to [facility] for which he was transferred here. Patient is not sure exactly why she was taking the hospital but she does say that she's had a bit of a cough last few days has been sneezing. Has had some chills no obvious fever. Does feel tired and rundown decreased appetite patient rather forgetful otherwise. Patient's overt-19 was ruled out. Patient have some positive troponin for which cardiology was consulted. Nonspecific EKG changes. This point and decided not to do any cardiac catheterization. Patient denies any of his chest pain. Admitted with-viral syndrome. Also acute non-Q-wave VT. Atrial fibrillation Today-some shortness of breath. Tired. Later seen by Dr. Rojas from pulmonary. Thoracentesis was done. Review of systems: Was done for constitutional, cardiovascular, GI, pulmonary. relevant finding as above Active Medications Alprazolam (Xanax) 0.5 mg PO BID [facility] Last Admin: 02/04/20 09:06 Dose: 0.5 mg Documented by: Amlodipine Besylate (Norvasc) 5 mg PO DAILY [facility] Last Admin: 02/04/20 09:06 Dose: 5 mg Documented by: Atorvastatin Calcium (Lipitor) 10 mg PO HS [facility] Last Admin: 02/03/20 20:42 Dose: 10 mg Documented by: Balsalazide (Colazal) 2,250 mg PO BID [facility] Last Admin: 02/04/20 09:06 Dose: 2,250 mg Documented by: Famotidine (Pepcid) 20 mg PO BID [facility] Last Admin: 02/04/20 09:06 Dose: 20 mg Documented by: Gabapentin (Neurontin) 600 mg PO BID [facility] Last Admin: 02/04/20 09:06 Dose: 600 mg Documented by: Levothyroxine Sodium (Synthroid) 100 mcg PO DAILY@0630 [facility] Last Admin: 02/04/20 05:38 Dose: 100 mcg Documented by: Metoprolol Tartrate (Lopressor) 50 mg PO TID [facility] Last Admin: 02/04/20 18:14 Dose: 50 mg Documented by: Miscellaneous Information (Potassium Per Protocol) 1 each MISCELLANE DAILY PRN; Protocol PRN Reason: Per Protocol Morphine Sulfate (Ms Contin) 15 mg PO DAILY [facility] Last Admin: 02/04/20 09:07 Dose: 15 mg Documented by: Nitroglycerin (Nitrostat) 0.4 mg SUBLINGUAL Q5M PRN PRN Reason: Chest Pain Oxybutynin Chloride (Ditropan Xl) 5 mg PO DAILY [facility] Last Admin: 02/04/20 09:06 Dose: 5 mg Documented by: Physical examination: VITAL SIGNS: 97.4, 132, 127/72, 90% on 2 L-this morning GENERAL: Laying in bed, awake EYES: Pupils equal. Conjunctiva normal. HEENT: External appearance of nose and ears normal, oral cavity grossly normal. NECK: JVD not raised; masses not palpable. HEART: Heart sounds irregular; no edema. LUNGS: Respiratory rate increased, slightly decreased breath sounds. ABDOMEN: Soft, nontender, liver spleen not palpable, no masses palpable. PSYCH: [Patient is able to answer simple questions mood and affect normal MUSCULOSKELETAL: Evidence of OA in multiple joints, loss of subcutaneous fat, bony prominences INVESTIGATIONS, reviewed in the clinical context: White count 8.3 hemoglobin 10.9 potassium 4.7 creatinine 0.68 Chest ultrasound-bilateral pleural effusions Previous testing White count 9.6 hemoglobin 11 potassium 3.7 creatinine 0.62 2-D echocardiogram global hypokinesia, EF 20-25%. Moderate mitral annular calcification, severe mitral regurgitation, moderate tricuspid regurgitation, moderate pulmonary hypertension, pleural effusion Previous testing White count 9 hemoglobin 10.8 crit is to 65 Troponin I 0.879, 0.718, 0.719 EKG tracing personally reviewed by me-sinus rhythm with intraventricular block nonspecific T-wave changes in the inferior leads Assessment: -New onset atrial fibrillation rate uncontrolled, POA -Chronic congestive heart failure from systolic dysfunction EF 20/25 percent from a lying ischemic heart disease -Bilateral pleural effusion from CHF-status post thoracentesis -Moderate mitral annular calcification, severe mitral regurgitation, moderate tricuspid regurgitation, -Secondary moderate pulmonary hypertension -Possible acute non-Q-wave VT -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 Other medications to continue. Status post thoracentesis. Repeat checks x-ray.
--- NOTE | 2020-02-04 20:26 | PCN ---
PROCEDURE NOTE PROCEDURE: Right thoracentesis. PREOPERATIVE DIAGNOSIS: Right pleural effusion. POSTOPERATIVE DIAGNOSIS: Right pleural effusion. There was informed consent and universal timeout. OPERATORS: 1. Dr. Arellano. 2. Dr. Ziegler. 3. Anthony Hurtado. 4. Saul Balderas. There was 1000 mL of fluid removed from the right pleural space that was sent for evaluation. The posterior right chest was marked by ultrasound. There were no immediate complications. The patient tolerated the procedure well. One liter of yellow fluid was removed from the right pleural base. A chest x-ray was ordered. There was no immediate complication and the patient, again, tolerated the procedure very well. The patient's procedure took place in the patient's room, #378. MMODL / IJN: [id number] /
[2020-02-04] MEDS: ATORVASTATIN 10 MG TAB PO SCH (21:31)
[2020-02-05 00:16] LABS: Glucose, BF Source Pleural Fluid; Glucose, Body Fluid 176 mg/dL; LDH, Body Fluid Source Pleural Fluid
[2020-02-05] MEDS: LEVOTHYROXINE 100 MCG TAB PO SCH (06:46)
[2020-02-05] MEDS: MORPHINE SULFATE ER 15 MG TABLET PO SCH (08:29)
[2020-02-05] MEDS: OXYBUTYNIN XL 5 MG TAB.ER.24 PO SCH (08:29)
[2020-02-05] MEDS: GABAPENTIN 300 MG CAP PO SCH ×2 (08:29→20:11)
[2020-02-05] MEDS: FAMOTIDINE 20 MG TAB PO SCH ×2 (08:29→20:11)
[2020-02-05] MEDS: METOPROLOL TARTRATE 50 MG TAB PO SCH ×3 (08:31→22:27)
[2020-02-05] MEDS: amLODIPine 5 MG TAB PO SCH (08:31)
[2020-02-05] MEDS: ALPRAZolam 0.5 MG TAB PO SCH ×2 (08:31→20:11)
[2020-02-05] MEDS: BALSALAZIDE DISODIUM 750 MG CAPSULE PO SCH ×2 (08:32→22:27)
--- NOTE | 2020-02-05 11:47 | P.PN ---
Subjective Progress Note Date: 02/05/20 This is a 79-year-old female with history of hypertension, hypothyroidism, who initially presented to [facility] with symptoms of fatigue and tiredness. She was noted there to have a new left bundle branch block pattern as well as mild abnormality in troponin, patient then was recommended to come here to [facility] where she was seen in the emergency room. Patient was diagnosed with a non-ST elevation myocardial infarction, and was also found to be in atrial fibrillation with moderate ventricular response. Patient did undergo an echocardiogram with Doppler study which revealed an ejection fraction of 20% with global decrease in contractility, it was also noted that the patient had a significant pleural effusion. Chest x-ray was ordered yesterday as well as a consultation with pulmonary. Patient was on Eliquis 2-1/2 mg one tablet by mouth twice a day for anticoagulation for her atrial fibrillation. The patient had been seen in consultation yesterday by pulmonary, underwent a thoracentesis for approximately a liter yesterday. She was seen and examined today and overall states that she is feeling significantly better. Blood pressure 118/60 with a heart rate in the 70s this morning. Her Eliquis continues to be on hold as pulmonary may perform a thoracentesis on the left. Objective - Vital Signs Vital signs: Vital Signs Temp 98.9 F 02/05/20 08:20 Pulse 100 02/05/20 08:20 Resp 20 02/05/20 08:20 BP 118/61 02/05/20 08:20 Pulse Ox 98 02/05/20 08:20 Intake & Output 02/04/20 02/05/20 02/05/20 18:59 06:59 18:59 Intake Total 430 20 270 Output Total 100 120 Balance 430 -80 150 Weight 46.5 kg Intake: IV 20 0.9 20 Oral 430 270 Output: Urine 100 120 Other: Voiding Method Indwelling Catheter Indwelling Catheter Indwelling Catheter # Voids 1 # Bowel Movements 0 - Exam PHYSICAL EXAMINATION: GENERAL: 79-year-old female in no acute distress at the time of my examination HEENT: Head is atraumatic, normocephalic. Pupils equal, round. Sclera anicteric. Conjunctiva are clear. Mucous membranes of the mouth are moist. Neck is supple. There is no elevated jugular venous pressure. No carotid bruit is heard. HEART EXAMINATION: Heart S1 S2 1 systolic murmur is heard CHEST EXAMINATION: Lungs reveal diminished air entry bilaterally to the bases ABDOMEN: Soft, nontender. Bowel sounds are heard. No organomegaly noted. EXTREMITIES: 2+ peripheral pulses with no evidence of peripheral edema and no calf tenderness noted. NEUROLOGIC patient is awake, alert and oriented 3 . - Labs CBC & Chem 7: 02/04/20 05:54 02/04/20 05:54 Labs: Microbiology - Last 24 Hours (Table) 02/04/20 14:30 Gram Stain - Preliminary Pleural Fluid Body Fluid Culture - Preliminary 02/04/20 14:30 Fungal Culture - Preliminary Pleural Fluid 02/04/20 14:30 Acid Fast Bacilli Culture - Preliminary Pleural Fluid Assessment and Plan Plan: Assessment and plan #1 acute hypoxemic respiratory failure secondary to congestive heart failure, systolic acute on chronic #2 bilateral effusion status post thoracentesis of the right yesterday #3 non-ST elevation OH #4 paroxysmal atrial fibrillation #5 hypertension #6 hyperlipidemia #7 hypothyroidism Plan Echocardiogram with Doppler study revealed severe MR, moderate TR, moderate pulmonary hypertension, ejection fraction less than 20%. A new to hold the Eliquis at this time for possible left-sided thoracentesis. We will start the patient on subcu heparin 2500 units twice a day. We will discontinue the Norvasc, secondary to the reduced LV function. Start the patient on a low-dose angiotensin miguel. If the potassium tolerates we will also consider Aldactone. DNP note has been reviewed, I agree with a documented findings and plan of care. Patient was seen and examined.
--- NOTE | 2020-02-05 14:44 | P.PN ---
Subjective Progress Note Date: 02/05/20 Principal diagnosis: This is a 79-year-old female patient who presented to the emergency department at [facility]. She was apparently complaining of chest pain and un stable angina. Subsequently, she was transferred here to [facility] emergency department for further workup and evaluation. Her past medical history includes breast cancer status post mastectomy, hypertension, GERD, hypothyroidism, CHF and hyperlipidemia. After her evaluation, she was admitted as an inpatient with a diagnosis of non-ST segment elevation myocardial infarction. She was evaluated by cardiology and underwent a 2-D echocardiogram which incidentally showed a left-sided pleural effusion. For follow-up a chest x-ray was completed which showed findings consistent with congestive heart failure and a left sided pleural effusion. Due to the incidental findings of pleural effusion and ultrasound of her chest was ordered which demonstrated a right sided pleural effusion pocket measuring 9.2 cm and a left pleural effusion pocket size measuring 5.9 cm. Subsequently, the patient underwent a right-sided thoracentesis performed by Dr. Arellano after obtaining consent. The patient had 1000 mL of fluid drained from her right pleural space which the cytology results remain pending. On 02/05/2020 the patient seen in follow-up on selective care unit, she is awake and alert, in no acute distress, sitting up comfortably in bed. Oxygen saturations are 98% on 5 L nasal cannula. She did not have a repeat chest x-ray completed today. Pleural fluid showing a LDH level 119, fluid total protein 1867 consistent with a transudate of effusion. Currently denies any complaints of shortness of breath and she reports she feels significantly better today. Remote telemetry showing atrial fibrillation heart rate 73. Objective - Vital Signs Vital signs: Vital Signs Temp 98.4 F 02/05/20 12:00 Pulse 74 02/05/20 12:00 Resp 20 02/05/20 12:00 BP 99/56 02/05/20 12:00 Pulse Ox 95 02/05/20 12:00 Intake & Output 02/04/20 02/05/20 02/05/20 18:59 06:59 18:59 Intake Total 430 20 270 Output Total 100 240 Balance 430 -80 30 Weight 46.5 kg Intake: IV 20 0.9 20 Oral 430 270 Output: Urine 100 240 Other: Voiding Method Indwelling Catheter Indwelling Catheter Indwelling Catheter # Voids 1 1 # Bowel Movements 0 - Exam Pleasant 79-year-old female patient who is in no acute distress. She is alert and oriented 3. - Constitutional General appearance: Present: cooperative, no acute distress, thin - EENT Eyes: Present: PERRLA. Absent: scleral icterus - Neck Details: Neck is supple, no JVD. Neck: Absent: lymphadenopathy, stridor - Respiratory Details: Lung sounds with some few scattered crackles throughout. Diminished bilateral bases. Respirations are symmetrical and nonlabored. - Cardiovascular Details: Irregular rhythm with controlled rate. S1 and S2 present, either for S3 or gallop. Positive systolic murmur. - Gastrointestinal Gastrointestinal Comment(s): Abdomen is soft, nontender and nondistended. Active bowel sounds present all 4 abdominal quadrants. No guarding or rigidity. General gastrointestinal: Absent: organomegaly - Integumentary Integumentary Comment(s): Skin is warm and dry. No clubbing or cyanosis present. No rash or abnormal pigmentation is present. - Neurologic Neurologic: Present: CNII-XII intact - Musculoskeletal Musculoskeletal: Present: generalized weakness, strength equal bilaterally - Psychiatric Psychiatric: Present: A&O x's 3, appropriate affect, intact judgment & insight - Allied health notes Allied health notes reviewed: nursing - Labs CBC & Chem 7: 02/04/20 05:54 02/04/20 05:54 Labs: Microbiology - Last 24 Hours (Table) 02/04/20 14:30 Gram Stain - Preliminary Pleural Fluid Body Fluid Culture - Preliminary 02/04/20 14:30 Fungal Culture - Preliminary Pleural Fluid 02/04/20 14:30 Acid Fast Bacilli Culture - Preliminary Pleural Fluid Assessment and Plan Assessment: 1. Acute hypoxic respiratory failure, secondary to congestive heart failure. 2. Bilateral pleural effusions, status post right thoracentesis on 02/04/2020 with 1 L of transudate of fluid drained. 3. Non-ST segment elevation myocardial infarction. 4. Chronic atrial fibrillation, on eliquis for anticoagulation. 5. Severe cardiomyopathy with an ejection fraction of 20-25%. 6. Hypertension 7. Hyperlipidemia 8. Hypothyroidism 9. History of underlying congestive heart failure. 10. Valvular heart disease as noted on the 2-D echocardiogram. 11. History of vitamin D deficiency. Plan: 1. The patient was seen and examined at her bedside on the cardiac stepdown unit with Dr. Arellano. 2. The patient can be resumed on her eliquis has no further plans for thoracentesis at this time. 3. Wean oxygen as tolerated to maintain oxygen saturations equal to or greater than 92%. 4. Repeat chest x-ray in a.m. 02/06/2020. 5. Increase activity as tolerated. 6. More recommendations to follow based on patient's clinical course. I, the cosigning physician, performed a history and physical examination on the patient. Lungs with bibasilar crackles and diminished to her bilateral base and maintaining O2 saturation in the 90s on 5 L nasal cannula. I discussed the plan and assessment of care with Gama Balderas NP. I attest that the above note is dictated by him. Time with Patient: Less than 30
[2020-02-05] MEDS ORDERED: SPIRONOLACTONE 25 MG TAB PO STA (18:20)
--- NOTE | 2020-02-05 18:21 | P.PN ---
Progress Note - Text Progress Note Date: 02/05/20 Chief Complaint: Feeling unwell History of presenting complaint: This is a 79-year-old patient of Dr. Froy Bansal. Chronic stable medical conditions include hyperlipidemia, hypertension, osteoarthritis. Patient initially presented to [facility] for which he was transferred here. Patient is not sure exactly why she was taking the hospital but she does say that she's had a bit of a cough last few days has been sneezing. Has had some chills no obvious fever. Does feel tired and rundown decreased appetite patient rather forgetful otherwise. Patient's overt-19 was ruled out. Patient have some positive troponin for which cardiology was consulted. Nonspecific EKG changes. This point and decided not to do any cardiac catheterization. Patient denies any of his chest pain. Admitted with-viral syndrome. Also acute non-Q-wave MD. Atrial fibrillation uncontrolled-went back into sinus rhythm. Right thoracentesis was done on February 03. 1000 cc were removed. Today-breathing a bit better. Amlodipine was discontinued. Oral intake better. Telemetry shows sinus rhythm. Review of systems: Was done for constitutional, cardiovascular, GI, pulmonary. relevant finding as above Active Medications Alprazolam (Xanax) 0.5 mg PO BID [facility] Last Admin: 02/05/20 08:31 Dose: 0.5 mg Documented by: Apixaban (Eliquis) 2.5 mg PO BID [facility] Atorvastatin Calcium (Lipitor) 10 mg PO HS [facility] Last Admin: 02/04/20 21:31 Dose: 10 mg Documented by: Balsalazide (Colazal) 2,250 mg PO BID [facility] Last Admin: 02/05/20 08:32 Dose: 2,250 mg Documented by: Famotidine (Pepcid) 20 mg PO BID [facility] Last Admin: 02/05/20 08:29 Dose: 20 mg Documented by: Gabapentin (Neurontin) 600 mg PO BID [facility] Last Admin: 02/05/20 08:29 Dose: 600 mg Documented by: Levothyroxine Sodium (Synthroid) 100 mcg PO DAILY@0630 [facility] Last Admin: 02/05/20 06:46 Dose: 100 mcg Documented by: Losartan Potassium (Cozaar) 12.5 mg PO DAILY [facility] Metoprolol Tartrate (Lopressor) 50 mg PO TID [facility] Last Admin: 02/05/20 15:56 Dose: 50 mg Documented by: Miscellaneous Information (Potassium Per Protocol) 1 each MISCELLANE DAILY PRN; Protocol PRN Reason: Per Protocol Morphine Sulfate (Ms Contin) 15 mg PO DAILY [facility] Last Admin: 02/05/20 08:29 Dose: 15 mg Documented by: Nitroglycerin (Nitrostat) 0.4 mg SUBLINGUAL Q5M PRN PRN Reason: Chest Pain Oxybutynin Chloride (Ditropan Xl) 5 mg PO DAILY [facility] Last Admin: 02/05/20 08:29 Dose: 5 mg Documented by: Physical examination: VITAL SIGNS: 98.4, 74, 18, 99/56, 95% on 5 L GENERAL: Laying in bed, awake, tired EYES: Pupils equal. Conjunctiva normal. HEENT: External appearance of nose and ears normal, oral cavity grossly normal. NECK: JVD not raised; masses not palpable. HEART: Heart sounds irregular; no edema. LUNGS: Respiratory rate increased, slightly decreased breath sounds. ABDOMEN: Soft, nontender, liver spleen not palpable, no masses palpable. PSYCH: [Patient is able to answer simple questions mood and affect normal MUSCULOSKELETAL: Evidence of OA in multiple joints, loss of subcutaneous fat, bony prominences INVESTIGATIONS, reviewed in the clinical context: White count 8.3 hemoglobin 10.9 potassium 4.7 creatinine 0.68 Chest ultrasound-bilateral pleural effusions Previous testing White count 9.6 hemoglobin 11 potassium 3.7 creatinine 0.62 2-D echocardiogram global hypokinesia, EF 20-25%. Moderate mitral annular calcification, severe mitral regurgitation, moderate tricuspid regurgitation, moderate pulmonary hypertension, pleural effusion Previous testing White count 9 hemoglobin 10.8 crit is to 65 Troponin I 0.879, 0.718, 0.719 EKG tracing personally reviewed by me-sinus rhythm with intraventricular block nonspecific T-wave changes in the inferior leads Assessment: -Paroxysmal atrial fibrillation rate uncontrolled-went back into sinus rhythm, POA -Chronic congestive heart failure from systolic dysfunction EF 20-25 percent from underlying ischemic heart disease -Acute hypoxic respiratory failure pleural effusion. 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 Recheck if patient is over replaced with Synthroid. Add Aldactone
[2020-02-05] MEDS: APIXABAN 2.5 MG TABLET PO SCH (20:11)
[2020-02-05] MEDS: ATORVASTATIN 10 MG TAB PO SCH (20:11)
[2020-02-06] MEDS: LEVOTHYROXINE 100 MCG TAB PO SCH (05:18)
--- NOTE | 2020-02-06 07:27 | XR ---
EXAMINATION TYPE: XR chest 1V portable DATE OF EXAM: 02/06/2020 HISTORY: Shortness of breath. COMPARISON: 02/04/2020 TECHNIQUE: Single view of the chest is submitted. FINDINGS: Demonstrated are scattered senescent parenchymal change. Basilar infiltrates and small pleural effusions persist. Slight interval progression May be present. Correlate clinically. The heart is stable. Hilar and mediastinal structures are within normal limits. Degenerative changes are seen of the dorsal spine. IMPRESSION: 1. Basilar infiltrates and small pleural effusions persist. Slight interval progression May be pres ent. Correlate clinically.
--- NOTE | 2020-02-06 11:04 | P.PN ---
Subjective Progress Note Date: 02/06/20 Principal diagnosis: This is a 79-year-old female patient who presented to the emergency department at [facility]. She was apparently complaining of chest pain and un stable angina. Subsequently, she was transferred here to [facility] emergency department for further workup and evaluation. Her past medical history includes breast cancer status post mastectomy, hypertension, GERD, hypothyroidism, CHF and hyperlipidemia. After her evaluation, she was admitted as an inpatient with a diagnosis of non-ST segment elevation myocardial infarction. She was evaluated by cardiology and underwent a 2-D echocardiogram which incidentally showed a left-sided pleural effusion. For follow-up a chest x-ray was completed which showed findings consistent with congestive heart failure and a left sided pleural effusion. Due to the incidental findings of pleural effusion and ultrasound of her chest was ordered which demonstrated a right sided pleural effusion pocket measuring 9.2 cm and a left pleural effusion pocket size measuring 5.9 cm. Subsequently, the patient underwent a right-sided thoracentesis performed by Dr. Arellano after obtaining consent. The patient had 1000 mL of fluid drained from her right pleural space which the cytology results remain pending. On 02/05/2020 the patient seen in follow-up on selective care unit, she is awake and alert, in no acute distress, sitting up comfortably in bed. Oxygen saturations are 98% on 5 L nasal cannula. She did not have a repeat chest x-ray completed today. Pleural fluid showing a LDH level 119, fluid total protein 1867 consistent with a transudate of effusion. Currently denies any complaints of shortness of breath and she reports she feels significantly better today. Remote telemetry showing atrial fibrillation heart rate 73. On 02/05/2020 the patient seen in follow-up on selective care unit with Dr. Arelalno. The patient was found sitting on the floor close to her bedside. She reports that she was trying to get up to go back to bed. Denies any complaints of pain, shortness of breath and denies that she hit her head. There is no obvious trauma. Oxygen saturations are 97% on 8 L high flow nasal cannula. She is a Osman catheter in place for accurate I&O. She has been afebrile the last 24 hours, she is hemodynamically stable with her current blood pressure 116/71 mmHg and term oh telemetry showing atrial fibrillation heart rate 76. A chest x-ray was completed today which demonstrates basilar infiltrates and small pleural effusions. She underwent a right thoracentesis on 02/04/2020 with 1 L of transudative fluid drained and her cytology results remain pending. Objective - Vital Signs Vital signs: Vital Signs Temp 98 F 02/06/20 08:00 Pulse 74 02/06/20 09:23 Resp 20 02/06/20 09:23 BP 116/71 02/06/20 09:23 Pulse Ox 97 02/06/20 09:23 Intake & Output 02/05/20 02/06/20 02/06/20 18:59 06:59 18:59 Intake Total 270 90 Output Total 440 400 Balance -170 -400 90 Weight 47.9 kg Intake: Oral 270 90 Output: Urine 440 400 Other: Voiding Method Indwelling Catheter Indwelling Catheter # Voids 1 1 - Exam Pleasant 79-year-old female patient who is in no acute distress. She is alert and oriented x2, person and place. - Constitutional General appearance: Present: cooperative, no acute distress, thin - EENT Eyes: Present: PERRLA. Absent: scleral icterus - Neck Details: Neck is supple, no JVD. Neck: Absent: lymphadenopathy - Respiratory Details: Lung sounds with some few scattered crackles throughout, diminished bilateral bases. Respirations are symmetrical and nonlabored. - Cardiovascular Details: Irregular rhythm with controlled rate. S1 and S2 present, either for S3 or gallop. Positive systolic murmur. - Gastrointestinal Gastrointestinal Comment(s): Abdomen is soft, nontender and nondistended. Active bowel sounds present all 4 abdominal quadrants. No guarding or rigidity. - Integumentary Integumentary Comment(s): Skin is warm and dry. No clubbing or cyanosis present. No rash or abnormal pigmentation is present. - Neurologic Neurologic: Present: CNII-XII intact - Musculoskeletal Musculoskeletal: Present: generalized weakness, strength equal bilaterally - Psychiatric Psychiatric Comment(s): Alert and Oriented 2, person and place Psychiatric: Present: appropriate affect - Allied health notes Allied health notes reviewed: nursing - Labs CBC & Chem 7: 02/04/20 05:54 02/04/20 05:54 Labs: Microbiology - Last 24 Hours (Table) 02/04/20 14:30 Gram Stain - Preliminary Pleural Fluid Body Fluid Culture - Preliminary 02/04/20 14:30 Acid Fast Bacilli Smear - Final Pleural Fluid Acid Fast Bacilli Culture - Preliminary - Imaging and Cardiology Chest x-ray: report reviewed, image reviewed Assessment and Plan Assessment: 1. Acute hypoxic respiratory failure, secondary to congestive heart failure. 2. Bilateral pleural effusions, status post right thoracentesis on 02/04/2020 with 1 L of transudate of fluid drained. 3. Non-ST segment elevation myocardial infarction. 4. Chronic atrial fibrillation, on eliquis for anticoagulation. 5. Severe cardiomyopathy with an ejection fraction of 20-25%. 6. Hypertension 7. Hyperlipidemia 8. Hypothyroidism 9. History of underlying congestive heart failure. 10. Valvular heart disease as noted on the 2-D echocardiogram. 11. History of vitamin D deficiency. 12. Status post fall from standing, unwitnessed. Plan: 1. The patient was seen and examined at her bedside on the cardiac stepdown unit with Dr. Arellano. 2. Continue eliquis as there is no further plans for thoracentesis at this time. 3. Wean oxygen as tolerated to maintain oxygen saturations equal to or greater than 92%. 4. Increase activity as tolerated. 5. Patient may need a product safety officer. 6. More recommendations to follow based on patient's clinical course. I, the cosigning physician, performed a history and physical examination on the patient. Lungs with bibasilar crackles and diminished to her bilateral base and maintaining O2 saturation in the 90s on 5 L nasal cannula. I discussed the plan and assessment of care with Gama Balderas NP. I attest that the above note is dictated by him. Time with Patient: Less than 30
--- NOTE | 2020-02-06 11:18 | P.PN ---
Subjective Progress Note Date: 02/06/20 This is a 79-year-old female with history of hypertension, hypothyroidism, who initially presented to [facility] with symptoms of fatigue and tiredness. She was noted there to have a new left bundle branch block pattern as well as mild abnormality in troponin, patient then was recommended to come here to [facility] where she was seen in the emergency room. Patient was diagnosed with a non-ST elevation myocardial infarction, and was also found to be in atrial fibrillation with moderate ventricular response. Patient did undergo an echocardiogram with Doppler study which revealed an ejection fraction of 20% with global decrease in contractility, it was also noted that the patient had a significant pleural effusion. Chest x-ray was ordered yesterday as well as a consultation with pulmonary. Patient was on Eliquis 2-1/2 mg one tablet by mouth twice a day for anticoagulation for her atrial fibrillation. The patient had been seen in consultation yesterday by pulmonary, underwent a thoracentesis for approximately a liter yesterday. She was seen and examined today and overall states that she is feeling significantly better. Blood pressure 118/60 with a heart rate in the 70s this morning. Her Eliquis continues to be on hold as pulmonary may perform a thoracentesis on the left. 02/06/2020 Patient was seen and examined this morning sitting up in the chair at bedside. Breathing is overall stable. She was reinitiated on her Eliquis yesterday, a thoracentesis of the left side will not be performed. We will decrease her Aldactone to 25 mg daily, discontinue her Osman catheter. In a normal sinus rhythm this morning. We will start the patient on 20 mg of Lasix twice a day. We will also obtain lytes BUN and creatinine today and daily. Objective - Vital Signs Vital signs: Vital Signs Temp 98 F 02/06/20 08:00 Pulse 74 02/06/20 09:23 Resp 20 02/06/20 09:23 BP 116/71 02/06/20 09:23 Pulse Ox 97 02/06/20 09:23 Intake & Output 02/05/20 02/06/20 02/06/20 18:59 06:59 18:59 Intake Total 270 90 Output Total 440 400 Balance -170 -400 90 Weight 47.9 kg Intake: Oral 270 90 Output: Urine 440 400 Other: Voiding Method Indwelling Catheter Indwelling Catheter # Voids 1 1 - Exam PHYSICAL EXAMINATION: GENERAL: 79-year-old female in no acute distress at the time of my examination HEENT: Head is atraumatic, normocephalic. Pupils equal, round. Sclera anicteric. Conjunctiva are clear. Mucous membranes of the mouth are moist. Neck is supple. There is no elevated jugular venous pressure. No carotid bruit is heard. HEART EXAMINATION: Heart S1 S2 1 systolic murmur is heard CHEST EXAMINATION: Lungs reveal diminished air entry bilaterally to the bases ABDOMEN: Soft, nontender. Bowel sounds are heard. No organomegaly noted. EXTREMITIES: 2+ peripheral pulses with no evidence of peripheral edema and no calf tenderness noted. NEUROLOGIC patient is awake, alert and oriented 3 . - Labs CBC & Chem 7: 02/04/20 05:54 02/04/20 05:54 Labs: Microbiology - Last 24 Hours (Table) 02/04/20 14:30 Gram Stain - Preliminary Pleural Fluid Body Fluid Culture - Preliminary 02/04/20 14:30 Acid Fast Bacilli Smear - Final Pleural Fluid Acid Fast Bacilli Culture - Preliminary Assessment and Plan Plan: Assessment and plan #1 acute hypoxemic respiratory failure secondary to congestive heart failure, systolic acute on chronic #2 bilateral effusion status post thoracentesis of the right yesterday #3 non-ST elevation ND #4 paroxysmal atrial fibrillation #5 hypertension #6 hyperlipidemia #7 hypothyroidism Plan Echocardiogram with Doppler study revealed severe MR, moderate TR, moderate pulmonary hypertension, ejection fraction less than 20%. Patient has been resumed on her Eliquis. We will decrease the Aldactone to 25 mg daily, check some lytes BUN and creatinine today and daily, and initiate Lasix 20 mg twice a day and discontinue the Osman catheter. Plan for possible discharge home in 24 hours or so if stable. DNP note has been reviewed, I agree with a documented findings and plan of care. Patient was seen and examined.
[2020-02-06] MEDS: ALPRAZolam 0.5 MG TAB PO SCH ×2 (11:21→20:29)
[2020-02-06] MEDS: GABAPENTIN 300 MG CAP PO SCH ×2 (11:21→20:29)
[2020-02-06] MEDS ORDERED: HEPARIN SOD,PORK IN 0.45% NACL 25,000 UNIT in 0.45% NACL 1 250ML.BAG IV SCH (12:00)
--- NOTE | 2020-02-06 12:02 | P.PN ---
Progress Note - Text Progress Note Date: 02/06/20 This is an addendum to the cardiology progress note dictated earlier. Patient had a swallowing evaluation today which she failed. We will hold her Eliquis and beta miguel at this time and put her on IV heparin as well as IV beta miguel until the patient has stability with her swallowing. DNP note has been reviewed, I agree with a documented findings and plan of care. Patient was seen and examined.
[2020-02-06] MEDS: OXYBUTYNIN XL 5 MG TAB.ER.24 PO SCH (12:05)
[2020-02-06] MEDS: LOSARTAN 25 MG TAB PO SCH (12:05)
[2020-02-06] MEDS: SPIRONOLACTONE 25 MG TAB PO SCH (12:05)
[2020-02-06] MEDS: MORPHINE SULFATE ER 15 MG TABLET PO SCH (12:05)
[2020-02-06] MEDS: FAMOTIDINE 20 MG TAB PO SCH ×2 (12:05→20:29)
[2020-02-06] MEDS: BALSALAZIDE DISODIUM 750 MG CAPSULE PO SCH ×2 (12:05→20:30)
[2020-02-06] MEDS: METOPROLOL TARTRATE 5 MG/5 ML VIAL IVP SCH ×3 (12:42→23:45)
--- NOTE | 2020-02-06 16:59 | P.PN ---
Progress Note - Text Progress Note Date: 02/06/20 Chief Complaint: Feeling unwell History of presenting complaint: This is a 79-year-old patient of Dr. Fory Bansal. Chronic stable medical conditions include hyperlipidemia, hypertension, osteoarthritis. Patient initially presented to [facility] for which he was transferred here. Patient is not sure exactly why she was taking the hospital but she does say that she's had a bit of a cough last few days has been sneezing. Has had some chills no obvious fever. Does feel tired and rundown decreased appetite patient rather forgetful otherwise. Patient's overt-19 was ruled out. Patient have some positive troponin for which cardiology was consulted. Nonspecific EKG changes. This point and decided not to do any cardiac catheterization. Patient denies any of his chest pain. Admitted with-viral syndrome. Also acute non-Q-wave GA. Atrial fibrillation uncontrolled-went back into sinus rhythm. Right thoracentesis was done on February 03. 1000 cc were removed. Today-tired. today patient underwent a modified barium swallow testing. Showed significant aspiration. Suggested diet was dysphagia stage III diet. Review of systems: Was done for constitutional, cardiovascular, GI, pulmonary. relevant finding as above Active Medications Alprazolam (Xanax) 0.5 mg PO BID [facility] Last Admin: 02/06/20 11:21 Dose: Not Given Documented by: Atorvastatin Calcium (Lipitor) 10 mg PO HS [facility] Last Admin: 02/05/20 20:11 Dose: 10 mg Documented by: Balsalazide (Colazal) 2,250 mg PO BID [facility] Last Admin: 02/06/20 12:05 Dose: Not Given Documented by: Famotidine (Pepcid) 20 mg PO BID [facility] Last Admin: 02/06/20 12:05 Dose: Not Given Documented by: Gabapentin (Neurontin) 600 mg PO BID [facility] Last Admin: 02/06/20 11:21 Dose: Not Given Documented by: Heparin Sodium/Sodium Chloride (25,000 unit/ Sodium Chloride) 250 mls @ 8 mls/hr IV .Q24H [facility] Last Admin: 02/06/20 12:44 Dose: 800 unit/hr, 8 mls/hr Documented by: Levothyroxine Sodium (Synthroid) 100 mcg PO DAILY@0630 [facility] Last Admin: 02/06/20 05:18 Dose: 100 mcg Documented by: Losartan Potassium (Cozaar) 12.5 mg PO DAILY [facility] Last Admin: 02/06/20 12:05 Dose: Not Given Documented by: Metoprolol Tartrate (Lopressor) 5 mg IVP Q6HR [facility] Last Admin: 02/06/20 12:42 Dose: 5 mg Documented by: Miscellaneous Information (Potassium Per Protocol) 1 each MISCELLANE DAILY PRN; Protocol PRN Reason: Per Protocol Morphine Sulfate (Ms Contin) 15 mg PO DAILY [facility] Last Admin: 02/06/20 12:05 Dose: Not Given Documented by: Nitroglycerin (Nitrostat) 0.4 mg SUBLINGUAL Q5M PRN PRN Reason: Chest Pain Oxybutynin Chloride (Ditropan Xl) 5 mg PO DAILY [facility] Last Admin: 02/06/20 12:05 Dose: Not Given Documented by: Spironolactone (Aldactone) 50 mg PO DAILY [facility] Last Admin: 02/06/20 12:05 Dose: Not Given Documented by: Physical examination: VITAL SIGNS: 98.2, 63, 18, 140/72, 95% on 2 L GENERAL: Laying in bed, awake, tired EYES: Pupils equal. Conjunctiva normal. HEENT: External appearance of nose and ears normal, oral cavity grossly normal. NECK: JVD not raised; masses not palpable. HEART: Heart sounds irregular; no edema. LUNGS: Respiratory rate increased, slightly decreased breath sounds. ABDOMEN: Soft, nontender, liver spleen not palpable, no masses palpable. PSYCH: [Patient is able to answer simple questions mood and affect normal MUSCULOSKELETAL: Evidence of OA in multiple joints, loss of subcutaneous fat, bony prominences INVESTIGATIONS, reviewed in the clinical context: White count 9.6 hemoglobin 14.2 potassium 4.6 creatinine 0.91 MBS-aspiration to multiple consistencies. Previous testing White count 9.6 hemoglobin 11 potassium 3.7 creatinine 0.62 2-D echocardiogram global hypokinesia, EF 20-25%. Moderate mitral annular calcification, severe mitral regurgitation, moderate tricuspid regurgitation, moderate pulmonary hypertension, pleural effusion Previous testing White count 9 hemoglobin 10.8 crit is to 65 Troponin I 0.879, 0.718, 0.719 EKG tracing personally reviewed by me-sinus rhythm with intraventricular block nonspecific T-wave changes in the inferior leads Chest ultrasound-bilateral pleural effusions Assessment: -Paroxysmal atrial fibrillation rate uncontrolled-went back into sinus rhythm, POA -Chronic congestive heart failure from systolic dysfunction EF 20-25 percent from underlying ischemic heart disease -Acute hypoxic respiratory failure pleural effusion. -Bilateral pleural effusion from CHF-status post thoracentesis-right side- thousand cc removed -Significant aspiration to multiple consistencies. -Moderate mitral annular calcification, severe mitral regurgitation, moderate tricuspid regurgitation, -Secondary moderate pulmonary hypertension -Possible acute non-Q-wave GA, POA -Moderate cognitive impairment with late onset Alzheimer's dementia -Hyperlipidemia -Essential hypertension -Primary osteoarthritis -Coronary artery disease with prior history of GA -Moderate protein calorie medical conditions -DO NOT RESUSCITATE Plan: Spoke to therapist today-ordered a modified barium swallow. Showed aspiration with multiple consistencies. Given the circumstances dysphagia 3 diet. Options are limited especially given her age and multiple comorbidities feeding tube not be a good option. Has still try the dysphagia 3 diet with understanding that the prognosis is guarded. Total time spent today was about 40 minutes with over 25 minutes in discussion. Also discussed with nurse.
[2020-02-06] MEDS ORDERED: HEPARIN SODIUM,PORCINE 5,000 UNIT/ML 1 ML VIAL IV PRN (18:52)
[2020-02-06] MEDS: ATORVASTATIN 10 MG TAB PO SCH (20:29)
[2020-02-07] MEDS: LEVOTHYROXINE 100 MCG TAB PO SCH (06:03)
[2020-02-07] MEDS: METOPROLOL TARTRATE 5 MG/5 ML VIAL IVP SCH ×3 (06:03→17:32)
[2020-02-07 08:00] LABS: Basophils % (A) 0 %; Eosinophils % (A) 0 %; HCT 37.3 % (34.0-46.0); HGB 11.5 gm/dL (11.4-16.0); Hypochromasia Moderate; Lymphocytes # (A) 0.9 k/uL (1.0-4.8); Lymphocytes % (A) 8 %; MCH 27.7 pg (25.0-35.0); MCHC 30.7 g/dL (31.0-37.0); MCV 90.2 fL (80.0-100.0); Mean Platelet Volume 8.8; Monocytes # (A) 0.4 k/uL (0-1.0); Monocytes % (A) 4 %; Neutrophils # (A) 9.5 k/uL (1.3-7.7); Neutrophils % (A) 87 %; Platelet Count 270 k/uL (150-450); RBC 4.13 m/uL (3.80-5.40); RDW 15.9 % (11.5-15.5)
--- NOTE | 2020-02-07 09:34 | FL ---
COMPARISON: NONE DATE OF EXAM: 02/06/2020 HISTORY: Aspiration A number of thin and thick substances were ingested under the care of the department of speech pathol ogy. There is aspiration on thin barium, puree, and nectar. Vallecular pooling and significant resid uals noted. 2.16 minutes of fluoroscopy was provided and no images submitted. IMPRESSION: 1. Aspiration as discussed above with significant residuals..
[2020-02-07] MEDS: MORPHINE SULFATE ER 15 MG TABLET PO SCH (10:03)
[2020-02-07] MEDS: GABAPENTIN 300 MG CAP PO SCH ×2 (10:03→20:13)
[2020-02-07] MEDS: SPIRONOLACTONE 25 MG TAB PO SCH (10:03)
[2020-02-07] MEDS: OXYBUTYNIN XL 5 MG TAB.ER.24 PO SCH (10:03)
[2020-02-07] MEDS: FAMOTIDINE 20 MG TAB PO SCH ×2 (10:04→20:12)
[2020-02-07] MEDS: BALSALAZIDE DISODIUM 750 MG CAPSULE PO SCH ×2 (10:04→20:12)
[2020-02-07] MEDS: ALPRAZolam 0.5 MG TAB PO SCH ×2 (11:27→20:13)
[2020-02-07] MEDS: LOSARTAN 25 MG TAB PO SCH (11:27)
--- NOTE | 2020-02-07 11:50 | P.PN ---
Subjective Progress Note Date: 02/07/20 Principal diagnosis: Acute hypoxic respiratory failure secondary to congestive heart failure, systolic with poor ejection fraction of 20-25% This is a 79-year-old female patient who presented to the emergency department at [facility]. She was apparently complaining of chest pain and unstable angina. Subsequently, she was transferred here to [facility] emergency department for further workup and evaluation. Her past medical history includes breast cancer status post mastectomy, hypertension, GERD, hypothyroidism, CHF and hyperlipidemia. After her evaluation, she was admitted as an inpatient with a diagnosis of non-ST segment elevation myocardial infarction. She was evaluated by cardiology and underwent a 2-D echocardiogram which incidentally showed a left-sided pleural effusion. For follow-up a chest x-ray was completed which showed findings consistent with congestive heart failure and a left sided pleural effusion. Due to the incidental findings of pleural effusion and ultrasound of her chest was ordered which demonstrated a right sided pleural effusion pocket measuring 9.2 cm and a left pleural effusion pocket size measuring 5.9 cm. Subsequently, the patient underwent a right-sided thoracentesis performed by Dr. Arellano after obtaining consent. The patient had 1000 mL of fluid drained from her right pleural space which the cytology results remain pending. On 02/05/2020 the patient seen in follow-up on selective care unit, she is awake and alert, in no acute distress, sitting up comfortably in bed. Oxygen saturati ons are 98% on 5 L nasal cannula. She did not have a repeat chest x-ray completed today. Pleural fluid showing a LDH level 119, fluid total protein 1867 consistent with a transudate of effusion. Currently denies any complaints of shortness of breath and she reports she feels significantly better today. Remote telemetry showing atrial fibrillation heart rate 73. On 02/05/2020 the patient seen in follow-up on selective care unit with Dr. Arellano. The patient was found sitting on the floor close to her bedside. She reports that she was trying to get up to go back to bed. Denies any complaints of pain, shortness of breath and denies that she hit her head. There is no obvious trauma. Oxygen saturations are 97% on 8 L high flow nasal cannula. She is a Osman catheter in place for accurate I&O. She has been afebrile the last 24 hours, she is hemodynamically stable with her current blood pressure 116/71 mmHg and term in telemetry showing atrial fibrillation heart rate 76. A chest x-ray was completed today which demonstrates basilar infiltrates and small pleural effusions. She underwent a right thoracentesis on 02/04/2020 with 1 L of transudative fluid drained and her cytology results remain pending. The patient is seen 02/07/2020 in follow-up on the selective care unit. She is currently sitting up at the bedside. Working with physical therapy. Awake and alert in no acute distress. Still requiring 8 L high flow nasal cannula to maintain O2 saturation in the 90s. She's afebrile. Somewhat tachycardic. Blood pressure stable. Pleural fluid cultures pending. Cytology pending. She did undergo a swallow evaluation and there was evidence of aspiration on thin barium, pured and nectar. There is vallecular pooling and significant residuals noted. White count 11.0. Hemoglobin 11.5. She remains on a heparin drip. Objective - Vital Signs Vital signs: Vital Signs Temp 97.7 F 02/07/20 11:25 Pulse 129 H 02/07/20 11:25 Resp 20 02/07/20 11:25 BP 118/75 02/07/20 11:25 Pulse Ox 94 L 02/07/20 11:25 Intake & Output 02/06/20 02/07/20 02/07/20 18:59 06:59 18:59 Intake Total 140 100 Output Total 300 325 Balance -160 -225 Weight 47.4 kg Intake: Intake, IV Titration 50 Amount Heparin Sod,Pork in 0.45% 50 NaCl 25,000 unit In 0.45 % NaCl 1 250ml.bag @ 800 UNIT/HR 8 mls/hr IV .Q24H [facility] Rx#:[id number] Oral 90 100 Output: Urine 300 325 Other: Voiding Method Indwelling Catheter Indwelling Catheter # Voids 0 # Bowel Movements 1 2 - Exam GENERAL EXAM: Alert, pleasant, frail, cachectic 79-year-old female patient, on 8 L high flow nasal cannula, in no apparent distress. HEAD: Normocephalic. EYES: Normal reaction of pupils, equal size. NOSE: Clear with pink turbinates. THROAT: No erythema or exudates. NECK: No masses, no JVD. CHEST: No chest wall deformity. LUNGS: Equal air entry with crackles in the bilateral posterior bases. CVS: S1 and S2 normal with no audible murmur, regular rhythm. ABDOMEN: No hepatosplenomegaly, normal bowel sounds, no guarding or rigidity. SPINE: No scoliosis or deformity SKIN: No rashes CENTRAL NERVOUS SYSTEM: No focal deficits, tone is normal in all 4 extremities. EXTREMITIES: There is no peripheral edema. No clubbing, no cyanosis. Peripheral pulses are intact. - Labs CBC & Chem 7: 02/07/20 06:30 02/04/20 05:54 Labs: Abnormal Lab Results - Last 24 Hours (Table) 02/06/20 02/07/20 02/07/20 Range/Units 17:59 01:08 06:30 WBC 11.0 H (3.8-10.6) k/uL MCHC 30.7 L (31.0-37.0) g/dL RDW 15.9 H (11.5-15.5) % Neutrophils # 9.5 H (1.3-7.7) k/uL Lymphocytes # 0.9 L (1.0-4.8) k/uL APTT 99.7 H 66.1 H (22.0-30.0) sec 02/07/20 Range/Units 06:30 WBC (3.8-10.6) k/uL MCHC (31.0-37.0) g/dL RDW (11.5-15.5) % Neutrophils # (1.3-7.7) k/uL Lymphocytes # (1.0-4.8) k/uL APTT 50.4 H (22.0-30.0) sec Microbiology - Last 24 Hours (Table) 02/04/20 14:30 Gram Stain - Preliminary Pleural Fluid Body Fluid Culture - Preliminary Assessment and Plan Assessment: 1. Acute hypoxic respiratory failure, secondary to acute exacerbation of systolic congestive heart failure. 2. Bilateral pleural effusions, status post right thoracentesis on 02/04/2020 with 1 L of transudate of fluid drained. Cytology pending 3. Non-ST segment elevation myocardial infarction. 4. Chronic atrial fibrillation, on eliquis for anticoagulation. 5. Severe cardiomyopathy with an ejection fraction of 20-25%. 6. Hypertension 7. Hyperlipidemia 8. Hypothyroidism 9. History of underlying congestive heart failure. 10. Valvular heart disease as noted on the 2-D echocardiogram. 11. History of vitamin D deficiency. 12. Status post fall from standing, unwitnessed. Plan: The patient was seen and evaluated by Dr. Arellano No plans for repeat thoracentesis Resume Eliquis Titrate down the FiO2 as tolerated Increase her activity as tolerated Nutrition needs to be addressed as she did demonstrate significant aspiration on swallow evaluation Poor overall prognosis We'll continue to follow I, the cosigning physician, performed a history & physical examination of the patient. Lungs sounds with crackles in the bilateral posterior bases, diminished. Maintaining good O2 saturations in the 90s on 8 L high flow nasal cannula. I discussed the assessment and plan of care with my nurse practitioner, Asia Ziegler. I attest to the above note as dictated by her.
[2020-02-07] MEDS ORDERED: HEPARIN SODIUM,PORCINE 5,000 UNIT/ML 1 ML VIAL IV PRN (11:55)
[2020-02-07] MEDS ORDERED: APIXABAN 5 MG TAB PO SCH (12:00)
[2020-02-07] MEDS: HEPARIN SOD,PORK IN 0.45% NACL 25,000 UNIT in 0.45% NACL 1 250ML.BAG IV SCH (12:45)
--- NOTE | 2020-02-07 12:54 | PN ---
PROGRESS NOTE Mrs. Navarrete is a lady with cardiomyopathy, ejection fraction of less than 25% with atrial fibrillation, left bundle branch block pattern. She is in actually paroxysmal atrial fibrillation. She also had a pleural effusion that was tapped. She is having some swallowing issues and this is being looked at. From a cardiac standpoint, I am recommending Eliquis 2.5 mg b.i.d., if she can swallow, rate control medications. Poor prognosis overall and whenever she is stronger and better, she may be discharged. Vitals are stable. JVD 1 cm. No carotid bruit. S1, S2 heard normally. Short systolic murmur noted. Lungs reveal improved air entry. Abdomen and lower extremity exam unchanged. MMODL / IJN: [id number] /
[2020-02-07] MEDS: SODIUM CHLORIDE 0.9% 1,000 ML IV SCH (12:56)
[2020-02-07 13:59] VITALS: BMI 17.9
--- NOTE | 2020-02-07 18:26 | P.PN ---
Progress Note - Text Progress Note Date: 02/07/20 Chief Complaint: Feeling unwell History of presenting complaint: This is a 79-year-old patient of Dr. Froy Bansal. Chronic stable medical conditions include hyperlipidemia, hypertension, osteoarthritis. Patient initially presented to [facility] for which he was transferred here. Patient is not sure exactly why she was taking the hospital but she does say that she's had a bit of a cough last few days has been sneezing. Has had some chills no obvious fever. Does feel tired and rundown decreased appetite patient rather forgetful otherwise. Patient's overt-19 was ruled out. Patient have some positive troponin for which cardiology was consulted. Nonspecific EKG changes. This point and decided not to do any cardiac catheterization. Patient denies any of his chest pain. Admitted with-viral syndrome. Also acute non-Q-wave [place]. Atrial fibrillation uncontrolled-went back into sinus rhythm. Right thoracentesis was done on February 03. 1000 cc were removed. modified barium swallow testing. Showed significant aspiration Today-patient eating some food. On a dysphagia diet. Sometimes refusing medications. Tired. Review of systems: Was done for constitutional, cardiovascular, GI, pulmonary. relevant finding as above Active Medications Alprazolam (Xanax) 0.5 mg PO BID [facility] Last Admin: 02/07/20 11:27 Dose: Not Given Documented by: Atorvastatin Calcium (Lipitor) 10 mg PO HS [facility] Last Admin: 02/06/20 20:29 Dose: 10 mg Documented by: Balsalazide (Colazal) 2,250 mg PO BID [facility] Last Admin: 02/07/20 10:04 Dose: 2,250 mg Documented by: Famotidine (Pepcid) 20 mg PO BID [facility] Last Admin: 02/07/20 10:04 Dose: 20 mg Documented by: Gabapentin (Neurontin) 600 mg PO BID [facility] Last Admin: 02/07/20 10:03 Dose: 600 mg Documented by: Heparin Sodium (Porcine) (Heparin) 0 unit IV PER PROTOCOL PRN; Protocol PRN Reason: Low PTT Heparin Sodium/Sodium Chloride (25,000 unit/ Sodium Chloride) 250 mls @ 8 mls/hr IV .Q24H [facility] Last Admin: 02/07/20 12:45 Dose: 800 unit/hr, 8 mls/hr Documented by: Sodium Chloride (Saline 0.9%) 1,000 mls @ 75 mls/hr IV .[id number] [facility] Last Admin: 02/07/20 12:56 Dose: 75 mls/hr Documented by: Levothyroxine Sodium (Synthroid) 100 mcg PO DAILY@0630 [facility] Last Admin: 02/07/20 06:03 Dose: 100 mcg Documented by: Losartan Potassium (Cozaar) 12.5 mg PO DAILY [facility] Last Admin: 02/07/20 11:27 Dose: Not Given Documented by: Metoprolol Tartrate (Lopressor) 5 mg IVP Q6HR [facility] Last Admin: 02/07/20 17:32 Dose: 5 mg Documented by: Miscellaneous Information (Potassium Per Protocol) 1 each MISCELLANE DAILY PRN; Protocol PRN Reason: Per Protocol Morphine Sulfate (Ms Contin) 15 mg PO DAILY [facility] Last Admin: 02/07/20 10:03 Dose: 15 mg Documented by: Nitroglycerin (Nitrostat) 0.4 mg SUBLINGUAL Q5M PRN PRN Reason: Chest Pain Oxybutynin Chloride (Ditropan Xl) 5 mg PO DAILY [facility] Last Admin: 02/07/20 10:03 Dose: 5 mg Documented by: Spironolactone (Aldactone) 50 mg PO DAILY [facility] Last Admin: 02/07/20 10:03 Dose: 50 mg Documented by: Physical examination: VITAL SIGNS: 97.4, 1:30, 24, 130/83, 95% on 8 L GENERAL: Laying in bed, awake, tired, short of breath EYES: Pupils equal. Conjunctiva normal. HEENT: External appearance of nose and ears normal, oral cavity grossly normal. NECK: JVD not raised; masses not palpable. HEART: Heart sounds irregular; no edema. LUNGS: Respiratory rate increased, slightly decreased breath sounds. ABDOMEN: Soft, nontender, liver spleen not palpable, no masses palpable. PSYCH: [Patient is able to answer simple questions mood and affect normal MUSCULOSKELETAL: Evidence of OA in multiple joints, loss of subcutaneous fat, bony prominences INVESTIGATIONS, reviewed in the clinical context: White count 11 hemoglobin 11.5 platelets 270 Previous testing White count 9.6 hemoglobin 11 potassium 3.7 creatinine 0.62 2-D echocardiogram global hypokinesia, EF 20-25%. Moderate mitral annular calcification, severe mitral regurgitation, moderate tricuspid regurgitation, moderate pulmonary hypertension, pleural effusion Previous testing White count 9 hemoglobin 10.8 crit is to 65 Troponin I 0.879, 0.718, 0.719 EKG tracing personally reviewed by me-sinus rhythm with intraventricular block nonspecific T-wave changes in the inferior leads Chest ultrasound-bilateral pleural effusions MBS-aspiration to multiple consistencies. Assessment: -Paroxysmal atrial fibrillation rate uncontrolled-, POA -Chronic congestive heart failure from systolic dysfunction EF 20-25 percent from underlying ischemic heart disease -Acute hypoxic respiratory failure pleural effusion.-Not improving -Bilateral pleural effusion from CHF-status post thoracentesis-right side- thousand cc removed -Dysphagia with Significant aspiration to multiple consistencies. -Moderate mitral annular calcification, severe mitral regurgitation, moderate tricuspid regurgitation, -Secondary moderate pulmonary hypertension -Possible acute non-Q-wave [place], POA -Moderate cognitive impairment with late onset Alzheimer's dementia -Hyperlipidemia -Essential hypertension -Primary osteoarthritis -Coronary artery disease with prior history of [place] -Moderate protein calorie medical conditions -DO NOT RESUSCITATE Plan: Patient is eating sometimes a dysphagia diet. Intermittently not taking medications. Significant hypoxic. Heart rate is back up again. Continue current medications. Advanced care planning: Had a lengthy talk with patient's daughter Myriam telephone #[phone]. Given update of patient's overall medical problems and specifics regarding tubal findings. Special emphasis was on a cardiac status respiratory status and mental status. Also patient failed swallowing. Also patient refusing some medications. After lengthy discussion patient's daughter decided to proceed with hospice. Daughter decided to proceed with [facility]. Different aspects of in the life care was discussed. Including medications. Questions were answered. Aiming to get her back to home tomorrow. Will need a hospital bed. Medications were discussed. Total time spent for this was about 25 minutes
[2020-02-07] MEDS: ATORVASTATIN 10 MG TAB PO SCH (20:13)
[2020-02-08] MEDS: METOPROLOL TARTRATE 5 MG/5 ML VIAL IVP SCH ×3 (00:25→14:57)
[2020-02-08] MEDS: LEVOTHYROXINE 100 MCG TAB PO SCH (06:40)
[2020-02-08 07:26] LABS: Anisocytosis Slight; Basophils % (A) 0 %; Eosinophils # (A) 0.1 k/uL (0-0.7); Eosinophils % (A) 0 %; HCT 40.8 % (34.0-46.0); HGB 12.2 gm/dL (11.4-16.0); Hypochromasia Marked; Lymphocytes % (A) 6 %; MCH 27.5 pg (25.0-35.0); MCV 91.7 fL (80.0-100.0); Mean Platelet Volume 9.7; Monocytes # (A) 0.8 k/uL (0-1.0); Monocytes % (A) 5 %; Neutrophils # (A) 14.1 k/uL (1.3-7.7); Neutrophils % (A) 87 %; Platelet Count 273 k/uL (150-450); RBC 4.45 m/uL (3.80-5.40); RDW 16.1 % (11.5-15.5); WBC 16.2 k/uL (3.8-10.6)
--- NOTE | 2020-02-08 07:31 | XR ---
EXAMINATION TYPE: XR chest 1V portable DATE OF EXAM: 02/08/2020 HISTORY: pna. REFERENCE: Previous study dated 02/06/2020. FINDINGS: There are continuing bibasilar infiltrates. These may have worsened slightly. Heart size is obscured. I suspect small, bilateral effusions. IMPRESSION: WORSENING BIBASILAR INFILTRATES.
[2020-02-08] MEDS: SODIUM CHLORIDE 0.9% 1,000 ML IV SCH ×2 (09:13→14:57)
[2020-02-08] MEDS: SPIRONOLACTONE 25 MG TAB PO SCH (09:19)
[2020-02-08] MEDS: BALSALAZIDE DISODIUM 750 MG CAPSULE PO SCH (09:20)
[2020-02-08] MEDS: FAMOTIDINE 20 MG TAB PO SCH ×2 (09:20→20:33)
[2020-02-08] MEDS: OXYBUTYNIN XL 5 MG TAB.ER.24 PO SCH (09:20)
[2020-02-08] MEDS: LOSARTAN 25 MG TAB PO SCH (09:20)
[2020-02-08] MEDS: ALPRAZolam 0.5 MG TAB PO SCH ×3 (09:25→20:33)
[2020-02-08] MEDS: GABAPENTIN 300 MG CAP PO SCH ×2 (09:25→20:33)
[2020-02-08] MEDS: MORPHINE SULFATE ER 15 MG TABLET PO SCH (09:25)
[2020-02-08] MEDS: METOPROLOL TARTRATE 50 MG TAB PO SCH (09:43)
[2020-02-08] MEDS: APIXABAN 2.5 MG TABLET PO SCH (09:43)
--- NOTE | 2020-02-08 12:12 | P.PN ---
Subjective Progress Note Date: 02/08/20 Principal diagnosis: This is a 79-year-old female patient who presented to the emergency department at [facility]. She was apparently complaining of chest pain and un stable angina. Subsequently, she was transferred here to [facility] emergency department for further workup and evaluation. Her past medical history includes breast cancer status post mastectomy, hypertension, GERD, hypothyroidism, CHF and hyperlipidemia. After her evaluation, she was admitted as an inpatient with a diagnosis of non-ST segment elevation myocardial infarction. She was evaluated by cardiology and underwent a 2-D echocardiogram which incidentally showed a left-sided pleural effusion. For follow-up a chest x-ray was completed which showed findings consistent with congestive heart failure and a left sided pleural effusion. Due to the incidental findings of pleural effusion and ultrasound of her chest was ordered which demonstrated a right sided pleural effusion pocket measuring 9.2 cm and a left pleural effusion pocket size measuring 5.9 cm. Subsequently, the patient underwent a right-sided thoracentesis performed by Dr. Arellano after obtaining consent. The patient had 1000 mL of fluid drained from her right pleural space which the cytology results remain pending. On 02/05/2020 the patient seen in follow-up on selective care unit, she is awake and alert, in no acute distress, sitting up comfortably in bed. Oxygen saturations are 98% on 5 L nasal cannula. She did not have a repeat chest x-ray completed today. Pleural fluid showing a LDH level 119, fluid total protein 1867 consistent with a transudate of effusion. Currently denies any complaints of shortness of breath and she reports she feels significantly better today. Remote telemetry showing atrial fibrillation heart rate 73. On 02/06/2020 the patient seen in follow-up on selective care unit with Dr. Arellano. The patient was found sitting on the floor close to her bedside. She reports that she was trying to get up to go back to bed. Denies any complaints of pain, shortness of breath and denies that she hit her head. There is no obvious trauma. Oxygen saturations are 97% on 8 L high flow nasal cannula. She is a Osman catheter in place for accurate I&O. She has been afebrile the last 24 hours, she is hemodynamically stable with her current blood pressure 116/71 mmHg and term oh telemetry showing atrial fibrillation heart rate 76. A chest x-ray was completed today which demonstrates basilar infiltrates and small pleural effusions. She underwent a right thoracentesis on 02/04/2020 with 1 L of transudative fluid drained and her cytology results remain pending. The patient is seen 02/07/2020 in follow-up on the selective care unit. She is currently sitting up at the bedside. Working with physical therapy. Awake and alert in no acute distress. Still requiring 8 L high flow nasal cannula to maintain O2 saturation in the 90s. She's afebrile. Somewhat tachycardic. Blood pressure stable. Pleural fluid cultures pending. Cytology pending. She did undergo a swallow evaluation and there was evidence of aspiration on thin barium, pured and nectar. There is vallecular pooling and significant residuals noted. White count 11.0. Hemoglobin 11.5. She remains on a heparin drip. The patient was seen today 02/08/2020 in follow-up on the cardiac stepdown unit. She is resting comfortably in bed. She is awake and alert with episodes of confusion. Currently in no acute distress. Remote telemetry is showing atrial fibrillation with RVR heart rate 150. She has been afebrile the last 24 hours and currently her blood pressure is 133/82. Oxygen saturations are 86% on 10 L high flow nasal cannula. According to her bedside nurse she is going to be discharged with hospice care today. Her right pleural fluid results from her cytology resulted in show mesothelial cells, macrophages and mixed inflammatory cells. No cytologically malignant cells were identified. The chest x-ray was completed this morning which demonstrates worsening bibasilar infiltrates. Objective - Vital Signs Vital signs: Vital Signs Temp 96.6 F L 02/08/20 11:26 Pulse 118 H 02/08/20 11:26 Resp 22 02/08/20 11:26 BP 128/82 02/08/20 11:26 Pulse Ox 86 L 02/08/20 11:26 Intake & Output 02/07/20 02/08/20 02/08/20 18:59 06:59 18:59 Intake Total 200 75 Output Total 0 Balance 200 75 Weight 47.4 kg Intake: Oral 200 75 Output: Urine 0 Other: Voiding Method Indwelling Catheter Indwelling Catheter Indwelling Catheter # Voids 2 - Exam Pleasant 79-year-old female patient who is resting in bed and currently her oxygen saturations are 86% on 10 L high flow nasal cannula. She is alert and having episodes of confusion. - Constitutional General appearance: Present: cooperative, thin - Neck Details: Neck supple, no JVD. Neck: Absent: lymphadenopathy - Respiratory Details: Equal air entry with crackles in the bilateral posterior bases. Respirations are symmetrical and tachypnic. - Cardiovascular Details: Irregular rhythm with a tachycardic rate. S1 and S2 present, negative for S3, gallop or murmur. - Gastrointestinal Gastrointestinal Comment(s): No hepatosplenomegaly, normal bowel sounds, no guarding or rigidity. - Integumentary Integumentary Comment(s): Skin is warm and dry. No clubbing present. - Neurologic Neurologic: Present: CNII-XII intact - Musculoskeletal Musculoskeletal: Present: generalized weakness, strength equal bilaterally - Psychiatric Psychiatric Comment(s): Episodes of confusion. Psychiatric: Present: appropriate affect - Allied health notes Allied health notes reviewed: nursing - Labs CBC & Chem 7: 02/08/20 06:35 02/04/20 05:54 Labs: Abnormal Lab Results - Last 24 Hours (Table) 02/08/20 Range/Units 06:35 WBC 16.2 H (3.8-10.6) k/uL MCHC 30.0 L (31.0-37.0) g/dL RDW 16.1 H (11.5-15.5) % Neutrophils # 14.1 H (1.3-7.7) k/uL Microbiology - Last 24 Hours (Table) 02/04/20 14:30 Gram Stain - Preliminary Pleural Fluid Body Fluid Culture - Preliminary - Imaging and Cardiology Chest x-ray: report reviewed, image reviewed Assessment and Plan Assessment: 1. Acute hypoxic respiratory failure, secondary to systolic congestive heart failure. 2. Bilateral pleural effusions, status post right thoracentesis on 02/04/2020 with 1 L of transudate of fluid drained. Cytology results negative for any malignant cells being identified 3. Non-ST segment elevation myocardial infarction. 4. Chronic atrial fibrillation, on eliquis for anticoagulation. 5. Severe cardiomyopathy with an ejection fraction of 20-25%. 6. Hypertension 7. Hyperlipidemia 8. Hypothyroidism 9. History of underlying congestive heart failure. 10. Valvular heart disease as noted on the 2-D echocardiogram. 11. History of vitamin D deficiency. 12. Status post fall from standing, unwitnessed. Plan: 1. The patient was seen and examined at her bedside on the cardiac stepdown unit with Dr. Arellano. 2. Continue eliquis, chronic persistent atrial fibrillation 3. Wean oxygen as tolerated to maintain oxygen saturations equal to or greater than 92%. 4. We will continue to follow the patient on an as-needed basis as the patient is being evaluated by hospice. I, the cosigning physician, performed a history and physical examination on the patient. Lungs with bibasilar crackles and diminished to her bilateral base and maintaining O2 saturation in the 90s on 5 L nasal cannula. I discussed the plan and assessment of care with Gama Balderas NP. I attest that the above note is dictated by him. Time with Patient: Less than 30
[2020-02-08] MEDS: HEPARIN SOD,PORK IN 0.45% NACL 25,000 UNIT in 0.45% NACL 1 250ML.BAG IV SCH (14:57)
--- NOTE | 2020-02-08 17:21 | P.PN ---
Progress Note - Text Progress Note Date: 02/08/20 Chief Complaint: Feeling unwell History of presenting complaint: This is a 79-year-old patient of Dr. Froy Bansal. Chronic stable medical conditions include hyperlipidemia, hypertension, osteoarthritis. Patient initially presented to [facility] for which he was transferred here. Patient is not sure exactly why she was taking the hospital but she does say that she's had a bit of a cough last few days has been sneezing. Has had some chills no obvious fever. Does feel tired and rundown decreased appetite patient rather forgetful otherwise. Patient's overt-19 was ruled out. Patient have some positive troponin for which cardiology was consulted. Nonspecific EKG changes. This point and decided not to do any cardiac catheterization. Patient denies any of his chest pain. Admitted with-viral syndrome. Also acute non-Q-wave NJ. Atrial fibrillation uncontrolled-went back into sinus rhythm. Right thoracentesis was done on February 03. 1000 cc were removed. modified barium swallow testing. Showed significant aspiration. Spoke to patient's daughter on February 06-at length. Looking at patient to be discharged with hospice. Patient continues to refuse medications intermittently. Today-. Laying in bed. Tired. Translocation questions. Spoke with nurse. Refusing some medications again.. Review of systems: Attempted for constitutional, cardiovascular, GI, pulmonary. relevant finding as above Active Medications Alprazolam (Xanax) 0.5 mg PO BID [facility] Last Admin: 02/08/20 09:35 Dose: 0.25 mg Documented by: Atorvastatin Calcium (Lipitor) 10 mg PO HS [facility] Last Admin: 02/07/20 20:13 Dose: 10 mg Documented by: Balsalazide (Colazal) 2,250 mg PO BID [facility] Last Admin: 02/08/20 09:20 Dose: Not Given Documented by: Famotidine (Pepcid) 20 mg PO BID [facility] Last Admin: 02/08/20 09:20 Dose: Not Given Documented by: Gabapentin (Neurontin) 600 mg PO BID [facility] Last Admin: 02/08/20 09:25 Dose: 600 mg Documented by: Heparin Sodium (Porcine) (Heparin) 0 unit IV PER PROTOCOL PRN; Protocol PRN Reason: Low PTT Sodium Chloride (Saline 0.9%) 1,000 mls @ 75 mls/hr IV .[id number] [facility] Last Admin: 02/08/20 14:57 Dose: 75 mls/hr Documented by: Levothyroxine Sodium (Synthroid) 100 mcg PO DAILY@0630 [facility] Last Admin: 02/08/20 06:40 Dose: Not Given Documented by: Losartan Potassium (Cozaar) 12.5 mg PO DAILY [facility] Last Admin: 02/08/20 09:20 Dose: Not Given Documented by: Metoprolol Tartrate (Lopressor) 5 mg IVP Q6HR [facility] Last Admin: 02/08/20 14:57 Dose: 5 mg Documented by: Miscellaneous Information (Potassium Per Protocol) 1 each MISCELLANE DAILY PRN; Protocol PRN Reason: Per Protocol Morphine Sulfate (Ms Contin) 15 mg PO DAILY [facility] Last Admin: 02/08/20 09:25 Dose: 15 mg Documented by: Nitroglycerin (Nitrostat) 0.4 mg SUBLINGUAL Q5M PRN PRN Reason: Chest Pain Oxybutynin Chloride (Ditropan Xl) 5 mg PO DAILY [facility] Last Admin: 02/08/20 09:20 Dose: Not Given Documented by: Spironolactone (Aldactone) 50 mg PO DAILY [facility] Last Admin: 02/08/20 09:19 Dose: Not Given Documented by: Physical examination: VITAL SIGNS: 96.6, 120, 22, 128/82, 86% on 10 L GENERAL: Laying in bed,, tired, short of breath EYES: Pupils equal. Conjunctiva normal. HEENT: External appearance of nose and ears normal, oral cavity grossly normal. NECK: JVD not raised; masses not palpable. HEART: Heart sounds irregular; no edema. LUNGS: Respiratory rate increased, slightly decreased breath sounds. ABDOMEN: Soft, nontender, liver spleen not palpable, no masses palpable. PSYCH: Patient also occasional question, but anxious MUSCULOSKELETAL: Evidence of OA in multiple joints, loss of subcutaneous fat, bony prominences INVESTIGATIONS, reviewed in the clinical context: White count 16.2 hemoglobin 12.2 Previous testing White count 9.6 hemoglobin 11 potassium 3.7 creatinine 0.62 2-D echocardiogram global hypokinesia, EF 20-25%. Moderate mitral annular calcification, severe mitral regurgitation, moderate tricuspid regurgitation, moderate pulmonary hypertension, pleural effusion Previous testing White count 9 hemoglobin 10.8 crit is to 65 Troponin I 0.879, 0.718, 0.719 EKG tracing personally reviewed by me-sinus rhythm with intraventricular block nonspecific T-wave changes in the inferior leads Chest ultrasound-bilateral pleural effusions MBS-aspiration to multiple consistencies. Assessment: -Paroxysmal atrial fibrillation rate uncontrolled-, POA -Chronic congestive heart failure from systolic dysfunction EF 20-25 percent from underlying ischemic heart disease -Acute hypoxic respiratory failure pleural effusion.-Not improving -Bilateral pleural effusion from CHF-status post thoracentesis-right side- thousand cc removed -Dysphagia with Significant aspiration to multiple consistencies. 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 Spoke to nurse couple of times. Patient's daughter will not be a date the patient home. Hospice company is looking for placement. Not happen today. DC telemetry
--- NOTE | 2020-02-09 07:27 | XR ---
EXAMINATION TYPE: XR chest 1V portable DATE OF EXAM: 02/09/2020 HISTORY: copd. REFERENCE: Previous study dated 02/08/2020. FINDINGS: There continue to be bibasilar infiltrates. I suspect bilateral effusions. Heart size is ob scured. IMPRESSION: CONTINUING BIBASILAR INFILTRATES PLUS OR MINUS PLEURAL FLUID.
[2020-02-09 07:34] LABS: Anisocytosis Slight; Basophils % (A) 0 %; Eosinophils # (A) 0.1 k/uL (0-0.7); Eosinophils % (A) 1 %; HCT 37.8 % (34.0-46.0); HGB 11.3 gm/dL (11.4-16.0); Hypochromasia Marked; Lymphocytes # (A) 0.6 k/uL (1.0-4.8); Lymphocytes % (A) 4 %; MCH 27.6 pg (25.0-35.0); MCHC 29.9 g/dL (31.0-37.0); MCV 92.1 fL (80.0-100.0); Mean Platelet Volume 8.9; Monocytes # (A) 0.5 k/uL (0-1.0); Monocytes % (A) 3 %; Neutrophils # (A) 16.3 k/uL (1.3-7.7); Neutrophils % (A) 93 %; Platelet Count 249 k/uL (150-450); RDW 16.4 % (11.5-15.5); WBC 17.7 k/uL (3.8-10.6)
[2020-02-09 09:52] VITALS: BP 120/68; PULSE 82; RESP 14; TEMP 98
[2020-02-09] MEDS: GABAPENTIN 300 MG CAP PO SCH (11:34)
[2020-02-09] MEDS: ALPRAZolam 0.5 MG TAB PO SCH (11:34)
[2020-02-09] MEDS: FAMOTIDINE 20 MG TAB PO SCH (11:34)
[2020-02-09] MEDS: SPIRONOLACTONE 25 MG TAB PO SCH (11:35)
[2020-02-09] MEDS: MORPHINE SULFATE ER 15 MG TABLET PO SCH (11:36)
[2020-02-09] MEDS ORDERED: MORPHINE SULFATE 2 MG/ML SYRINGE IVP PRN (15:44)
--- NOTE | 2020-02-09 16:34 | P.DS ---
Providers Date of admission: 02/01/20 16:16 Expected date of discharge: 02/09/20 Attending physician: Josemanuel Herbert Consults: 02/01/20 16:16 Consult Physician Urgent Consulting Provider: Cardiology Laura Consult Reason/Comments: Unstable angina Do you want consulting provider notified?: Yes 02/04/20 09:31 Consult Physician Routine Consulting Provider: Aramis Arellano Consult Reason/Comments: pleural eff Do you want consulting provider notified?: Yes Primary care physician: Froy López [facility] Course: Chief Complaint: Feeling unwell History of presenting complaint: This is a 79-year-old patient of Dr. Froy Bansal. Chronic stable medical conditions include hyperlipidemia, hypertension, osteoarthritis. Patient initially presented to [facility] for which he was transferred here. Patient is not sure exactly why she was taking the hospital but she does say that she's had a bit of a cough last few days has been sneezing. Has had some chills no obvious fever. Does feel tired and rundown decreased appetite patient rather forgetful otherwise. Patient's overt-19 was ruled out. Patient have some positive troponin for which cardiology was consulted. Nonspecific EKG changes. This point and decided not to do any cardiac catheterization. Patient denies any of his chest pain. Admitted with-viral syndrome. Also acute non-Q-wave RI. Atrial fibrillation uncontrolled-went back into sinus rhythm. Right thoracentesis was done on February 03. 1000 cc were removed. modified barium swallow testing. Showed significant aspiration. Spoke to patient's daughter on February 06-at length. Looking at patient to be discharged with hospice. Patient continues to refuse medications intermittently. Today-. Laying in bed. Refusing most medications. Mouth breathing.. FiO2 been decreased. Because of mouth breathing. Just to keep the patient comfortable. Comfort feeding. Consultations: [facility] Dr. Arellano and partners from pulmonary Physical examination: VITAL SIGNS: 98, 82, 14, 120/68, 86% on 10 L GENERAL: Laying in bed,, tired, short of breath, mouth breathing EYES: Pupils equal. Conjunctiva normal. HEENT: External appearance of nose and ears normal, oral cavity grossly normal. NECK: JVD not raised; masses not palpable. HEART: Heart sounds irregular; no edema. LUNGS: Respiratory rate increased, slightly decreased breath sounds. ABDOMEN: Soft, nontender, liver spleen not palpable, no masses palpable. PSYCH: Patient also occasional question, but anxious MUSCULOSKELETAL: Evidence of OA in multiple joints, loss of subcutaneous fat, bony prominences INVESTIGATIONS, reviewed in the clinical context: White count 17.7 hemoglobin 11.3 Previous testing White count 9.6 hemoglobin 11 potassium 3.7 creatinine 0.62 2-D echocardiogram global hypokinesia, EF 20-25%. Moderate mitral annular calcification, severe mitral regurgitation, moderate tricuspid regurgitation, moderate pulmonary hypertension, pleural effusion Previous testing White count 9 hemoglobin 10.8 crit is to 65 Troponin I 0.879, 0.718, 0.719 EKG tracing personally reviewed by me-sinus rhythm with intraventricular block nonspecific T-wave changes in the inferior leads Chest ultrasound-bilateral pleural effusions MBS-aspiration to multiple consistencies. Assessment: -Paroxysmal atrial fibrillation rate uncontrolled-, POA -Chronic congestive heart failure from systolic dysfunction EF 20-25 percent from underlying ischemic heart disease -Acute hypoxic respiratory failure pleural effusion.-Not improving -Bilateral pleural effusion from CHF-status post thoracentesis-right side- thousand cc removed -Dysphagia with Significant aspiration to multiple consistencies. 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 -Hyperlipidemia -Essential hypertension -Primary osteoarthritis -Coronary artery disease with prior history of RI -Moderate protein calorie medical conditions -DO NOT RESUSCITATE Disposition: Hospice house Patient Condition at Discharge: Poor Plan - Discharge Summary Discharge Rx Participant: No New Discharge Prescriptions: Continue Morphine Sulfate ER [Ms Contin] 15 mg PO DAILY Gabapentin 600 mg PO BID ALPRAZolam [Xanax] 0.5 mg PO BID Discontinued Simvastatin [Zocor] 20 mg PO HS Oxybutynin Chloride [Ditropan XL] 5 mg PO DAILY Metoprolol Tartrate [Lopressor] 25 mg PO TID Cholecalciferol [Vitamin D3 (25 Mcg = 1000 Iu)] 1,000 unit PO DAILY Aspirin EC [Ecotrin Low Dose] 81 mg PO DAILY amLODIPine [Norvasc] 5 mg PO DAILY Levothyroxine Sodium [Synthroid] 100 mcg PO DAILY Famotidine [Pepcid] 20 mg PO BID Enalapril [Vasotec] 5 mg PO DAILY Balsalazide Disodium 2,250 mg PO BID Discharge Medication List ALPRAZolam [Xanax] 0.5 mg PO BID 02/01/20 [History] Gabapentin 600 mg PO BID 02/01/20 [History] Morphine Sulfate ER [Ms Contin] 15 mg PO DAILY 02/01/20 [History] Follow up Appointment(s)/Referral(s): Froy López DO [Primary Care Provider] - As Needed
== END 2020-02-09 17:33 | disposition hospice, inpatient (51) | DRG 280 ==
LOC: EC 15:01 → 3SCARD 16:16
PROVIDERS: ADMIT Hospitalist; ATTEND Hospitalist
PROC: 0W993ZX Drainage of Right Pleural Cavity, Percutaneous Approach, Diagnostic (ICD-10-PCS; principal; 2020-02-04)
DX: I21.4 Non-ST elevation (NSTEMI) myocardial infarction (principal); I50.23 Acute on chronic systolic (congestive) heart failure; J96.01 Acute respiratory failure with hypoxia; I42.9 Cardiomyopathy, unspecified; I48.20 Chronic atrial fibrillation, unspecified; J90 Pleural effusion, not elsewhere classified; E44.0 Moderate protein-calorie malnutrition; Z68.1 Body mass index [BMI] 19.9 or less, adult; I11.0 Hypertensive heart disease with heart failure; G30.1 Alzheimer's disease with late onset; I08.1 Rheumatic disorders of both mitral and tricuspid valves; B34.9 Viral infection, unspecified; E03.9 Hypothyroidism, unspecified; Z51.5 Encounter for palliative care; Z66 Do not resuscitate; E78.5 Hyperlipidemia, unspecified; F02.80 Dementia in other diseases classified elsewhere, unspecified severity, without behavioral disturbance, psychotic disturbance, mood disturbance, and anxiety; I25.110 Atherosclerotic heart disease of native coronary artery with unstable angina pectoris; Z20.828 Contact with and (suspected) exposure to other viral communicable diseases; I25.2 Old myocardial infarction; I27.20 Pulmonary hypertension, unspecified; I44.0 Atrioventricular block, first degree; I44.7 Left bundle-branch block, unspecified; I48.0 Paroxysmal atrial fibrillation; M89.49 Other hypertrophic osteoarthropathy, multiple sites; Z79.01 Long term (current) use of anticoagulants; Z79.82 Long term (current) use of aspirin; Z79.890 Hormone replacement therapy; Z79.899 Other long term (current) drug therapy; Z85.3 Personal history of malignant neoplasm of breast; Z90.11 Acquired absence of right breast and nipple; E55.9 Vitamin D deficiency, unspecified; I25.10 Atherosclerotic heart disease of native coronary artery without angina pectoris; R13.10 Dysphagia, unspecified
CPT/HCPCS: 36415; 71045; 71046; 74230; 76604; 80048; 80053; 80061; 82945; 83615; 83880; 84157; 84443; 84484; 85025; 85610; 85730; 87070; 87102; 87116; 87205; 87206; 87252; 87496; 87498; 87502; 87529; 87634; 87798; 88108; 88305; 88341; 88342; 89050; 93005; 93306; 94003; 94660; 96365; 96366; 99291